=== PATIENT | male | born 1945 | race Caucasian/White ===

== ENCOUNTER 2023-11-21 12:52 | Emergency (ER) | payer OTHER, SELFPAY ==
[2023-11-21 13:01] VITALS: BP 175/90; PULSE 98; TEMP 36.6; O2SAT 98; BMI 35.3
--- NOTE | 2023-11-21 13:55 | CT_ITS ---
[address] [address] Patient Name: CHECO DIALLO MRN: [id number] date: 1945 Sex: M Assigned Patient Location: ER Current Patient Location: Accession/Order Number: [id number] Exam Date: 11/21/2023 14:27 Report Date: 11/21/2023 15:07 At the request of: LUZ SNIDER Procedure: CT abdomen pelvis wo con EXAMINATION: CT abdomen pelvis wo con HISTORY: Left lower quad pain COMPARISON: CT abdomen pelvis 10/25/2022 TECHNIQUE: Axial, Coronal, and Sagittal images were obtained without and/or with IV contrast as indicated by examination type. Dose reduction techniques were achieved by using automated exposure control and/or adjustment of mA and/or kV according to patient size and/or use of iterative reconstruction technique. FINDINGS: LUNG BASES: Stable 4 mm nodule within posterior lateral right costophrenic angle. LIVER: No enlargement, atrophy, suspicious density, or significant focal lesion. BILIARY: No dilatation or calcification. PANCREAS: No lesion, fluid collection, or abnormal duct dilatation. SPLEEN: No enlargement or focal lesion. ADRENALS: No mass or enlargement. KIDNEYS: Prior right nephrectomy. No mass, obstruction, or calcification. BOWEL/MESENTERY: Diverticulosis of distal colon with mild pericolonic inflammatory changes at the descending and sigmoid junction. No free air or free fluid. No bowel obstruction or appreciable mass. AORTA/VASCULAR: No aneurysm or dissection. RETROPERITONEUM: No mass or adenopathy. LYMPH NODES: No adenopathy. URINARY BLADDER: No visible focal wall thickening, lesion, or calculus. PELVIC ORGANS: Prior radioactive seeding of the prostate. ABDOMINAL WALL: Midline sutures from prior surgery. Bilateral fat filled inguinal hernias without strangulation. BONES: No bony lesion or fracture. L4-5 marked degenerative disc disease. OTHER: Negative. CT/CT abdomen pelvis wo con IMPRESSION: 1. Mild acute diverticulitis of the colon at the descending-sigmoid colon junction. No free air, free fluid, or obstruction. 2. Stable 4 mm nodule within right posterior lung base costophrenic angle; nonspecific. Electronically authenticated by: JOHANNA DUKES Date: 11/21/2023 15:07
--- NOTE | 2023-11-21 13:58 | ED_ITS ---
HPI HPI - General Adult General Chief complaint: Abdominal Pain Stated complaint: ABDOMINAL PAIN Time Seen by Provider: 11/21/23 13:55 Source: patient and family Mode of arrival: walk-in History of Present Illness HPI narrative: Patient is a 78-year-old male who presents to the emergency department for left lower quadrant abdominal pain that began last night. He denies fevers, chills. He has had no nausea or vomiting. He states he had a bowel movement yesterday but has not had any diarrhea or blood in his stool. He has had diverticulitis twice previously and states this feels the same. He denies urinary symptoms, flank or back pain. Related Data Previous Rx's ?Medication ?Instructions ?Recorded ciprofloxacin HCl 500 mg tablet 500 mg PO BID #20 tabs 11/21/23 (Cipro) dicyclomine 20 mg tablet 20 mg PO QID PRN abdominal pain 11/21/23 #12 tabs metronidazole 500 mg tablet 500 mg PO Q12H 10 days #20 tabs 11/21/23 ondansetron 4 mg disintegrating 4 mg PO Q6H PRN nausea and 11/21/23 tablet vomiting #12 tabs oxycodone-acetaminophen 5 mg-325 1 tab PO Q6H PRN pain 2 days #10 11/21/23 mg tablet (Percocet) tabs Allergies Allergy/AdvReac Type Severity Reaction Status Date / Time No Known Drug Allergies Allergy Verified 11/21/23 12:59 Opioid HPI Opioid Management Most Recent Opioid Data: No Data to Display Review of Systems ROS Constitutional Denies: fever or chills Ears, nose, mouth, and throat Denies: throat pain or nasal congestion Respiratory Denies: shortness of breath Gastrointestinal Reports: abdominal pain; Denies: nausea, vomiting or diarrhea Genitourinary Denies: painful urination Musculoskeletal Denies: back pain Integumentary/Breast Denies: rash Neurological Denies: headache Hematologic/Lymphatic Denies: easy bruising or easy bleeding Exam Narrative Exam Narrative: Gen.: Awake, alert, in no distress Head: Normocephalic, atraumatic ENT: Moist mucous membranes Respiratory: No respiratory distress, lungs clear bilaterally Cardio: Regular rate and rhythm Gastrointestinal: Abdomen is soft, nondistended and minimally tender to palpation in the left lower quadrant; no guarding or rebound Extremities: Moves extremities equally Psych: Normal mood and affect Neuro: No focal neuro deficit Skin: Warm, dry, intact Constitutional Vital Signs, click to edit/add: Last Vital Signs Temp 98 F 11/21/23 13:01 Pulse 98 H 11/21/23 13:01 Resp 15 11/21/23 13:01 BP 175/90 H 11/21/23 13:01 Pulse Ox 98 11/21/23 13:01 O2 Del Method Room Air 11/21/23 13:01 Course Vital Signs Vital signs: Vital Signs Temperature 98 F 11/21/23 13:01 Pulse Rate 98 H 11/21/23 13:01 Respiratory Rate 15 11/21/23 13:01 Blood Pressure 175/90 H 11/21/23 13:01 Pulse Oximetry 98 11/21/23 13:01 Oxygen Delivery Method Room Air 11/21/23 13:01 Temperature 98 F 11/21/23 13:01 Pulse Rate 98 H 11/21/23 13:01 Respiratory Rate 15 11/21/23 13:01 Blood Pressure 175/90 H 11/21/23 13:01 Pulse Oximetry 98 11/21/23 13:01 Oxygen Delivery Method Room Air 11/21/23 13:01 Medical Decision Making MDM Narrative Medical decision making narrative: Patient agreeable to IV start, lab draw, CT of the abdomen and pelvis. Patient with leukocytosis, CT shows mild acute diverticulitis. No free air or perforation. Patient declined any medication for pain in the ER. He has no complaints of nausea or vomiting. He is appropriate for discharge home. He is agreeable to IV Cipro prior to discharge. Cipro, Flagyl, Percocet, Bentyl, Zofran given for home. Follow-up with PCP. Abdomen is soft and benign in the ER. Return to the emergency department if symptoms change or worsen. Medical Records Medical records reviewed: Yes I reviewed the patient's medical records Lab Data Lab results reviewed: Yes I reviewed the patient's lab results Labs: Lab Results 11/21/23 11/21/23 Range/Units 14:00 14:05 WBC 22.1 H (4.0-11.0) 10^3/uL RBC 5.19 (4.70-6.10) 10^6/uL Hgb 15.3 (14.0-18.0) g/dL Hct 47.3 (42.0-54.0) % MCV 91.1 (80.0-94.0) fL MCH 29.5 (25.9-34.0) pg MCHC 32.3 (29.9-35.2) g/dL RDW 12.7 (11.0-15.0) % Plt Count 253 (150-450) 10^3/uL MPV 9.5 (9.5-13.5) fL Seg Neuts % (Manual) 79.0 Lymphocytes % (Manual) 9.0 L (20.5-60.0) % Monocytes % (Manual) 10.0 (1.7-12.0) % Eosinophils % (Manual) 2.0 (0.9-7.0) % Basophils % (Manual) 0.0 L (0.2-2.0) % Neutrophils # (Manual) 17.45 H (1.4-6.5) 10^3/uL Lymphocytes # (Manual) 1.98 (1.20-3.80) 10^3/uL Monocytes # (Manual) 2.21 H (0.30-0.80) 10^3/uL Eosinophils # (Manual) 0.44 (0.00-0.70) 10^3/uL Basophils # (Manual) 0.00 (0.00-0.10) 10^3/uL Sodium 134 L (136-145) mmol/L Potassium 4.6 (3.5-5.1) mmol/L Chloride 98 (98-107) mmol/L Carbon Dioxide 29.4 (21.0-32.0) mmol/L Anion Gap 11.2 BUN 15.0 (7.0-18.0) mg/dL Creatinine 0.96 (0.70-1.30) mg/dL Est GFR ( Amer) >60 (>=60) Est GFR (Non-Af Amer) >60 (>=60) BUN/Creatinine Ratio 15.6 Glucose 126 H (74-106) mg/dL Lactate 1.6 (0.4-2.0) mmol/L Calcium 10.2 H (8.5-10.1) mg/dL Total Bilirubin 0.9 (0.2-1.0) mg/dL AST 11 L (15-37) U/L ALT 17 (16-63) U/L Alkaline Phosphatase 83 (46-116) U/L Total Protein 8.1 (6.4-8.2) g/dL Albumin 3.9 (3.4-5.0) g/dL Globulin 4.2 g/dL Albumin/Globulin Ratio 0.9 Lipase 24.0 (16.0-77.0) U/L Imaging Data CT scan - abdomen: Attestation: I have reviewed the pertinent imaging results. Radiologist's impression: ITS Impressions Abdomen/Pelvis CT 11/21/23 13:55 IMPRESSION: 1. Mild acute diverticulitis of the colon at the descending-sigmoid colon junction. No free air, free fluid, or obstruction. 2. Stable 4 mm nodule within right posterior lung base costophrenic angle; nonspecific. Electronically authenticated by: JOHANNA DUKES Date: 11/21/2023 15:07 Discharge Plan Discharge Stand Alone Forms: Portal Instructions Chief Complaint: Abdominal Pain Clinical Impression: Diverticulitis, Abdominal pain Patient Disposition: Home, Self-Care Time of Disposition Decision: 15:16 Condition: Good Prescriptions / Home Meds: New ciprofloxacin HCl [Cipro] 500 mg tablet 500 mg PO BID Qty: 20 0RF dicyclomine 20 mg tablet 20 mg PO QID PRN (Reason: abdominal pain) Qty: 12 0RF metronidazole 500 mg tablet 500 mg PO Q12H 10 Days Qty: 20 0RF oxycodone-acetaminophen [Percocet] 5-325 mg tablet 1 tab PO Q6H PRN (Reason: pain) 2 Days Qty: 10 0RF Rx Instructions: DX: R10.9 ondansetron 4 mg tablet,disintegrating 4 mg PO Q6H PRN (Reason: nausea and vomiting) Qty: 12 0RF Print Language: Croatian Instructions: Diverticulitis (ED), Diverticulitis Diet (ED) Referrals: LEI SMALLS RE [Primary Care Provider] - 1 week
[2023-11-21 14:19] LABS: Hematocrit 47.3 % (42.0-54.0); Hemoglobin 15.3 g/dL (14.0-18.0); Mean Corpuscular HGB Conc 32.3 g/dL (29.9-35.2); Mean Corpuscular Hemoglobin 29.5 pg (25.9-34.0); Mean Corpuscular Volume 91.1 fL (80.0-94.0); Mean Platelet Volume 9.5 fL (9.5-13.5); Platelet Count 253 10^3/uL (150-450); Red Blood Count 5.19 10^6/uL (4.70-6.10); Red Cell Distribution Width 12.7 % (11.0-15.0); White Blood Count 22.1 10^3/uL (4.0-11.0)
[2023-11-21 14:40] LABS: Lactate/Lactic Acid 1.6 mmol/L (0.4-2.0)
[2023-11-21 14:41] LABS: Lymphocytes Absolute Manual 1.98 10^3/uL (1.20-3.80); Segmented Neut Absolute Manual 17.45 10^3/uL (1.4-6.5)
[2023-11-21 14:42] LABS: Eosinophils Absolute Manual 0.44 10^3/uL (0.00-0.70); Monocytes Absolute Manual 2.21 10^3/uL (0.30-0.80)
[2023-11-21 14:46] LABS: Alanine Aminotransferase 17 U/L (16-63); Albumin Globulin Ratio 0.9; Albumin Level 3.9 g/dL (3.4-5.0); Alkaline Phosphatase 83 U/L (46-116); Anion Gap 11.2; Aspartate Amino Transferase 11 U/L (15-37); BUN Creatinine Ratio 15.6; Bilirubin Total 0.9 mg/dL (0.2-1.0); Calcium 10.2 mg/dL (8.5-10.1); Carbon Dioxide 29.4 mmol/L (21.0-32.0); Chloride 98 mmol/L (98-107); Estimated GFR (African America >60 (>=60); Estimated GFR (Non-African Ame >60 (>=60); Globulin 4.2 g/dL; Glucose 126 mg/dL (74-106); Potassium 4.6 mmol/L (3.5-5.1); Sodium 134 mmol/L (136-145); Total Protein 8.1 g/dL (6.4-8.2)
[2023-11-21 15:18] LABS: Bilirubin Urine NEGATIVE (NEGATIVE); Blood Urine NEGATIVE (NEGATIVE); Clarity Urine CLEAR (CLEAR); Color Urine LT. YELLOW (YELLOW); Glucose Urine UA NEGATIVE (NEGATIVE); Ketones Urine NEGATIVE (NEGATIVE); Leukocyte Esterase Urine NEGATIVE (NEGATIVE); Nitrite Urine NEGATIVE (NEGATIVE); Protein Urine NEGATIVE (NEG/TRACE); Urobilinogen Urine 0.2 EU/dL (0.2-1.0)
[2023-11-21 15:19] LABS: Urine Microscopic Indicated NO
[2023-11-21] MEDS: CIPROFLOXACIN IN 5 % DEXTROSE 400 MG/200 ML PIGGYBACK 200 MG IV (15:39)
== END 2023-11-21 16:46 | disposition home or self-care (01) ==
PROVIDERS: Physician Assistant; Emergency Provider Emergency Medicine; PCP Family Medicine
DX: K57.32 Diverticulitis of large intestine without perforation or abscess without bleeding (principal); R91.1 Solitary pulmonary nodule; Z90.5 Acquired absence of kidney
CPT/HCPCS: 36415; 74176; 80053; 81003; 83605; 83690; 85007; 85027; 96365; 99285

== ENCOUNTER 2024-09-10 17:42 | Emergency (ER) | payer OTHER, MEDICARE, SELFPAY ==
[2024-09-10] VITALS (17 sets, daily range): BP systolic 133–198; BP diastolic 69–86; PULSE 84–115; TEMP 37.4; O2SAT 82–99; BMI 35.3
--- OUTSIDE RECORDS SUMMARY | 2024-09-10 17:52 | XMS_ITS | CCD ---
Author Organization [facility] Care Team Providers Care Plant Anatomy Teacher Name Role Phone DR JOHANNA DUKES Consulting Unavailable KELBY, DR KINGSLEY Chin Attending Unavailable KELBY, DR KINGSLEY Chin Admitting Unavailable DR LEI SMALLS Primary Care Unavaila ble KELBY, DR KINGSLEY Chin Consulting Unavailable DIAB ., LEXIE Consulting Unavailable ARAGON, ILIA Consulting Unavailable Problems Problem Classification Problem Date Documented Date Episodic/Chronic Abdominal pain (3 sources) Unspecified abdominal pain; Translations: [UNSPECIFIED ABDOMINAL PAIN] Onset: 10-25-2022 Episodic Diabetes mellitus with complications (1 source) Type 2 diabetes mellitus with hyperglycemia; Translations: [TYPE 2 DM W/HYPERGLYCEMIA] Onset: 11-01-2022 Chronic Diverticulosis and diverticulitis (1 source) Diverticulitis of large intestine without perforation or abscess without bleeding; Translations: [DVTRCLI LG INT NO PERF/ABSC W/O BL] Onset: 11-01-2022 Chronic Essential hypertension (1 source) Essential (primary) hypertension; Translations: [ESSENTIAL PRIMARY HYPERTENSION] Onset: 11-01-2022 Chronic Fluid and electrolyte disorders (1 source) Dehydration; Translations: [DEHYDRATION] Onset: 11-01-2022 Episodic Other aftercare (1 source) Other long term care social worker (current) drug therapy; Translations: [OTH SLIPCOVER CUTTER CURRENT DRUG THERAPY] Onset: 11-01-2022 Episodic Septicemia (except in labor) (1 source) Sepsis, unspecified organism; Translations: [SEPSIS UNSPECIFIED ORGANISM] Onset: 11-01-2022 Episodic Unclassified (1 source) CONTACT W/AND (SUSP) EXPOS COVID-19; Translations: [CONTACT W/AND (SUSP) EXPOS COVID-19] Onset: 11-01-2022 Results Test Name Value Interpretation Reference Range Facility CBC AUTO DIFFon 10-26-2022 BASO # 0.0 103/ul Normal 0.0-0.1 [facility] Comment on above: Performed By: #### P OCGLUC #### [facility] [address] [address] [address] Shanika Armas Basophils/100 WBC (Bld) 0.3 % Normal 0.2-2.0 [facility] Comment on above: Performed By: #### P OCGLUC #### [facility] [address] [address] [address] Shanika Armas EO # 0.1 103/ul Normal 0.0-0.7 [facility] Comment on above: Performed By: #### P OCGLUC #### [facility] [address] [address] [address] Shanika Armas Eosinophils/100 WBC (Bld) 2.4 % Normal 0.9-7.0 [facility] Comment on above: Performed By: #### P OCGLUC #### [facility] [address] [place] [address] Dr. Shanika Armas Erythrocyte distribution width (RBC) [Ratio] 12.8 % Normal 11.0-15.0 [facility] Comment on above: Performed By: #### P OCGLUC #### [facility] [address] [place] [address] Dr. Shanika Armas Hematocrit (Bld) [Volume fraction] 41.4 % Critically low 42.0-54.0 [facility] Comment on above: Performed By: #### P OCGLUC #### [facility] [address] [place] [address] Dr. Shanika Armas Hemoglobin (Bld) [Mass/Vol] 13.3 g/dL Critically low 14.0-18.0 [facility] Comment on above: Performed By: #### P OCGLUC #### [facility] [address] [place] [address] Dr. Shanika Armas IG # 0.02 10e3/ul Normal 0.00-0.03 [facility] Comment on above: Performed By: #### P OCGLUC #### [facility] [address] [address] [address] Shanika Armas IG % 0.3 % Normal 0.0-0.5 [facility] Comment on above: Performed By: #### P OCGLUC #### [facility] [address] [address] [address] Shanika Armas LYMPH # 1.0 103/ul Critically low 1.2-3.8 [facility] Comment on above: Performed By: #### P OCGLUC #### [facility] [address] [address] [address] Shanika Armas Lymphocytes/100 WBC (Bld) 16.2 % Critically low 20.5-60.0 [facility] Comment on above: Performed By: #### P OCGLUC #### [facility] [address] [address] [address] Shanika Armas MANUAL DIFF REQ NO Normal [facility] Comment on above: Performed By: #### P OCGLUC #### [facility] [address] [address] [address] Shanika Armas MCH (RBC) [Entitic mass] 29.2 pg Normal 25.9-34.0 [facility] Comment on above: Performed By: #### P OCGLUC #### [facility] [address] [address] [address] Shanika Armas MCHC (RBC) [Mass/Vol] 32.1 g/dL Normal 29.9-35.2 [facility] Comment on above: Performed By: #### P OCGLUC #### [facility] [address] [address] [address] Shanika Armas MCV (RBC) [Entitic vol] 91.0 fL Normal 80.0-94.0 [facility] Comment on above: Performed By: #### P OCGLUC #### [facility] [address] [address] [address] Shanika Armas MONO # 0.8 103/ul Normal 0.3-0.8 [facility] Comment on above: Performed By: #### P OCGLUC #### [facility] [address] [address] [address] Shanika Armas Monocytes/100 WBC (Bld) 14.1 % Critically high 1.7-12.0 [facility] Comment on above: Performed By: #### P OCGLUC #### [facility] [address] [address] [address] Shanika Armas NEUT # 4.0 103/ul Normal 1.4-6.5 [facility] Comment on above: Performed By: #### P OCGLUC #### [facility] [address] [address] [address] Shanika Armas Neutrophils/100 WBC (Bld) 66.7 % Normal 43.0-75.0 [facility] Comment on above: Performed By: #### P OCGLUC #### [facility] [address] [address] [address] Shanika Armas Platelet mean volume (Bld) [Entitic vol] 9.4 fL Critically low 9.5-13.5 [facility] Comment on above: Performed By: #### P OCGLUC #### [facility] [address] [address] [address] Shanika Armas PLT 168 103/ul Normal 150-450 [facility] Comment on above: Performed By: #### P OCGLUC #### [facility] [address] [address] [address] Shanika Armas RBC 4.55 106/ul Critically low 4.70-6.10 [facility] Comment on above: Performed By: #### P OCGLUC #### [facility] [address] [address] [address] Shanika Armas WBC 5.9 103/ul Normal 4.0-11.0 [facility] Comment on above: Performed By: #### P OCGLUC #### [facility] [address] [address] [address] Shanika Armas POINT OF CARE GLUCOSEon 10-15 Glucose [Mass/Vol] 125 mg/dL Critically high 74-106 [facility] Comment on above: Performed By: #### P OCGLUC #### [facility] [address] [address] [address] Shanika Armas PROF 14(COMP METB)on 04-12-2 023 Albumin [Mass/Vol] 2.9 g/dL Critically low 3.4-5.0 Th e [facility] Comment on above: Performed By: #### C MP #### [facility] [address] [place] [address] Dr. Shanika Armas Albumin/Globulin [Mass ratio] 0.9 {ratio} Normal [facility] Comment on above: Performed By: #### C MP #### [facility] [address] [address] [address] Shanika Armas ALP [Catalytic activity/Vol] 62 U/L Normal 46-116 [facility] Comment on above: Performed By: #### C MP #### [facility] [address] [place] [address] Dr. Shanika Armas ALT [Catalytic activity/Vol] 17 U/L Normal 16-63 [facility] Comment on above: Performed By: #### C MP #### [facility] [address] [place] [address] Dr. Shanika Armas Anion gap [Moles/Vol] 10.9 mmol/L Normal [facility] Comment on above: Performed By: #### C MP #### [facility] [address] [place] [address] Dr. Shanika Armas AST [Catalytic activity/Vol] 15 U/L Normal 15-37 [facility] Comment on above: Performed By: #### C MP #### [facility] [address] [place] [address] Dr. Shanika Armas Bilirubin [Mass/Vol] 0.5 mg/dL Normal 0.2-1.0 [facility] Comment on above: Performed By: #### C MP #### [facility] [address] [place] [address] Dr. Shanika Armas Calcium [Mass/Vol] 8.8 mg/dL Normal 8.5-10.1 [facility] Comment on above: Performed By: #### C MP #### [facility] [address] [place] [address] Dr. Shanika Armas Chloride [Moles/Vol] 106 mmol/L Normal 98-107 [facility] Comment on above: Performed By: #### C MP #### [facility] [address] [address] [address] Shanika Armas CO2 [Moles/Vol] 26.1 mmol/L Normal 21.0-32.0 [facility] Comment on above: Performed By: #### C MP #### [facility] [address] [address] [address] Shanika Armas Creatinine [Mass/Vol] 0.98 mg/dL Normal 0.70-1.30 [facility] Comment on above: Performed By: #### C MP #### [facility] [address] [address] [address] Shanika Armas EGFR-AF SAUDI ARABIAN >60 Normal >=60 [facility] Comment on above: Performed By: #### C MP #### [facility] [address] [place] [address] Dr. Shanika Armas EGFR-NON AF SAUDI ARABIAN >60 Normal >=60 [facility] Comment on above: Performed By: #### C MP #### [facility] [address] [place] [address] Dr. Shanika Armas Globulin (S) [Mass/Vol] 3.3 g/dL Normal [facility] Comment on above: Performed By: #### C MP #### [facility] [address] [place] [address] Dr. Shanika Armas Glucose [Mass/Vol] 137 mg/dL Critically high 74-106 [facility] Comment on above: Performed By: #### C MP #### [facility] [address] [place] [address] Dr. Shanika Armas Potassium [Moles/Vol] 4.0 mmol/L Normal 3.5-5.1 [facility] Comment on above: Performed By: #### C MP #### [facility] [address] [place] [address] Dr. Shanika Armas Protein [Mass/Vol] 6.2 g/dL Critically low 6.4-8.2 [facility] Comment on above: Performed By: #### C MP #### [facility] [address] [address] [address] Shanika Armas Sodium [Moles/Vol] 139 mmol/L Normal 136-145 [facility] Comment on above: Performed By: #### C MP #### [facility] [address] [address] [address] Shanika Armas Urea nitrogen [Mass/Vol] 10.0 mg/dL Normal 7.0-18.0 [facility] Comment on above: Performed By: #### C MP #### [facility] [address] [address] [address] Shanika Armas Urea nitrogen/Creatinine [Mass ratio] 10.2 mg/mg Normal [facility] Comment on above: Performed By: #### C MP #### [facility] [address] [address] [address] Shanika Armas XR ABD FLAT_UPon 10-26-2022 XR ABD FLAT_UP EXAMINATION: XR ABD FLAT_UP HISTORY: pain ; increasing abdominal pain COMPARISON: No relevant comparison available. FINDINGS: BOWEL GAS PATTERN: No abnormal bowel dilation or suspicious fluid levels. FREE AIR: None. CALCIFICATIONS: None significant. BONES: No fracture or visible bone lesion. OTHER: Numerous midline sutures, likely within the anterior abdominal and pelvic wall. Prior radioactive seeding of the prostate. IMPRESSION: 1. No bowel obstruction or acute abdominal findings. Electronically authenticated by: JOHANNA DUKES Date: 2022-10-26 11:09 Normal [facility] CARDIAC AIDEN ADMITon 023 CK [Catalytic activity/Vol] 37 U/L Critically low 39-308 [facility] Comment on above: Performed By: #### C MADM #### [facility] [address] [address] [address] Shanika Armas CK.MB [Mass/Vol] ng/mL Normal <=3.60 [facility] Comment on above: Performed By: #### C MADM #### [facility] [address] [address] [address] Shanika Armas HSTROP 6.2 pg/mL Normal 4.0-76.1 [facility] Comment on above: Result Comment: CUT- OFF POINTS HAVE BEEN ESTABLISHED BASED ON THE FOURTH UNIVERSAL DEFINITIONS OF MYOCARDIAL INFARCTION. THE UPPER REFERENCE LIMIT (URL) OF TROPONIN, DEFINED THE 99TH PERCENTILE OF cTnI DISTRIBUTION IN A REFERENCE POPULATION, HAS BEEN CONFIRMED THE DECISION THRESHOLD FOR [place] DIAGNOSIS. Performed By: #### C MADM #### [facility] [address] [address] [address] Shanika Armas ELISE 33 ng/mL Normal 16-96 [facility] Comment on above: Performed By: #### C MADM #### [facility] [address] [address] [address] Shanika Armas CBC AUTO DIFFon 10-25-2022 BASO # 0.0 103/ul Normal 0.0-0.1 [facility] Comment on above: Performed By: #### P OCGLUC #### [facility] [address] [place] [address] Dr. Shanika Armas Basophils/100 WBC (Bld) 0.2 % Normal 0.2-2.0 [facility] Comment on above: Performed By: #### P OCGLUC #### [facility] [address] [place] [address] Dr. Shanika Armas EO # 0.1 103/ul Normal 0.0-0.7 [facility] Comment on above: Performed By: #### P OCGLUC #### [facility] [address] [place] [address] Dr. Shanika Armas Eosinophils/100 WBC (Bld) 0.5 % Critically low 0.9-7.0 [facility] Comment on above: Performed By: #### P OCGLUC #### [facility] [address] [place] [address] Dr. Shanika Armas Erythrocyte distribution width (RBC) [Ratio] 12.7 % Normal 11.0-15.0 [facility] Comment on above: Performed By: #### P OCGLUC #### [facility] [address] [place] [address] Dr. Shanika Armas Hematocrit (Bld) [Volume fraction] 49.1 % Normal 42.0-54.0 [facility] Comment on above: Performed By: #### P OCGLUC #### [facility] [address] [address] [address] Shanika Armas Hemoglobin (Bld) [Mass/Vol] 16.1 g/dL Normal 14.0-18.0 [facility] Comment on above: Performed By: #### P OCGLUC #### [facility] [address] [address] [address] Shanika Armas IG # 0.09 10e3/ul Critically high 0.00-0.03 [facility] Comment on above: Performed By: #### P OCGLUC #### [facility] [address] [address] [address] Shanika Armas IG % 0.5 % Normal 0.0-0.5 [facility] Comment on above: Performed By: #### P OCGLUC #### [facility] [address] [place] [address] Dr. Shanika Armas LYMPH # 0.9 103/ul Critically low 1.2-3.8 [facility] Comment on above: Performed By: #### P OCGLUC #### [facility] [address] [address] [address] Shanika Armas Lymphocytes/100 WBC (Bld) 5.1 % Critically low 20.5-60.0 [facility] Comment on above: Performed By: #### P OCGLUC #### [facility] [address] [place] [address] Dr. Shanika Armas MANUAL DIFF REQ NO Normal [facility] Comment on above: Performed By: #### P OCGLUC #### [facility] [address] [address] [address] Shanika Armas MCH (RBC) [Entitic mass] 29.3 pg Normal 25.9-34.0 [facility] Comment on above: Performed By: #### P OCGLUC #### [facility] [address] [place] [address] Dr. Shanika Armas MCHC (RBC) [Mass/Vol] 32.8 g/dL Normal 29.9-35.2 [facility] Comment on above: Performed By: #### P OCGLUC #### [facility] [address] [address] [address] Shanika Armas MCV (RBC) [Entitic vol] 89.3 fL Normal 80.0-94.0 [facility] Comment on above: Performed By: #### P OCGLUC #### [facility] [address] [address] [address] Shanika Armas MONO # 1.2 103/ul Critically high 0.3-0.8 [facility] Comment on above: Performed By: #### P OCGLUC #### [facility] [address] [address] [address] Shanika Armas Monocytes/100 WBC (Bld) 6.2 % Normal 1.7-12.0 [facility] Comment on above: Performed By: #### P OCGLUC #### [facility] [address] [address] [address] Shanika Armas NEUT # 16.3 103/ul Critically high 1.4-6.5 [facility] Comment on above: Performed By: #### P OCGLUC #### [facility] [address] [address] [address] Shanika Armas Neutrophils/100 WBC (Bld) 87.5 % Critically high 43.0-75.0 [facility] Comment on above: Performed By: #### P OCGLUC #### [facility] [address] [address] [address] Shanika Armas Platelet mean volume (Bld) [Entitic vol] 9.5 fL Normal 9.5-13.5 [facility] Comment on above: Performed By: #### P OCGLUC #### [facility] [address] [address] [address] Shanika Armas PLT 236 103/ul Normal 150-450 [facility] Comment on above: Performed By: #### P OCGLUC #### [facility] [address] [address] [address] Shanika Armas RBC 5.50 106/ul Normal 4.70-6.10 [facility] Comment on above: Performed By: #### P OCGLUC #### [facility] [address] [place], [place] [address] Dr. Shanika Armas WBC 18.6 103/ul Critically high 4.0-11.0 [facility] Comment on above: Performed By: #### P OCGLUC #### [facility] [address] [place], [place] [address] ABD/PELV W CONon 10-26-19 CT ABD/PELV W CON EXAMINATION: CT ABD/PELV W CON HISTORY: GENERALIZED ABDOMINAL PAIN , constipation COMPARISON: No relevant comparison available. TECHNIQUE: Axial, Coronal, and Sagittal images were obtained without and/or with IV contrast as indicated by examination type. Dose reduction techniques were achieved by using automated exposure control and/or adjustment of mA and/or kV according to patient size and/or use of iterative reconstruction technique. FINDINGS: LUNG BASES: A few tiny nodules within right lung base; nonspecific. Trace amount of atelectasis or infiltrates within left lung base. LIVER: No enlargement, atrophy, suspicious density, or significant focal lesion. BILIARY: No dilatation or calcification. PANCREAS: No lesion, fluid collection, or abnormal duct dilatation. SPLEEN: No enlargement or focal lesion. ADRENALS: No mass or enlargement. KIDNEYS: Prior right nephrectomy; no abnormal findings within the renal fossa. Unremarkable left kidney and ureter. BOWEL/MESENTERY: Numerous diverticula involving the descending and sigmoid colon without acute inflammatory changes. Fluid-filled loops of small and large bowel without obstruction or abnormal dilation. No visible mass, obstruction, or bowel wall thickening. Normal appendix. AORTA/VASCULAR: No aneurysm or dissection. RETROPERITONEUM: No mass or adenopathy. LYMPH NODES: No adenopathy. URINARY BLADDER: No visible focal wall thickening, lesion, or calculus. PELVIC ORGANS: Prior radioactive seeding of the prostate. ABDOMINAL WALL: Numerous midline sutures within the anterior abdominal wall. No hernia. BONES: L4-5 marked degenerative disc disease. Mild grade 1 retrolisthesis L2-3, L4-5. L5 bilateral pars interarticularis defects, likely congenital. OTHER: Negative. IMPRESSION: 1.No acute abdominal/pelvic findings to account for patient's symptoms. 2. Trace amount of infiltrates versus atelectasis within left lung base. 3. Colonic diverticulosis. 4.Degenerative changes of lumbar spine. Electronically authenticated by: JOHANNA DUKES Date: 2022-10-25 10:37 Normal [facility] CULTURE BLOODon 10-25-2022 Microscopic examination of blood, culture Culture Observations: NO GROWTH AT 5 DAYS. Normal [facility] Comment on above: Performed By: #### P OCGLUC #### [facility] [address] [place] [address] Dr. Shanika Armas Microscopic examination of blood, culture Culture Observations: NO GROWTH AT 5 DAYS. Normal [facility] Comment on above: Performed By: #### P OCGLUC #### [facility] [address] [address] [address] Shanika Armas Covid-19 PCR ([facility])on 10-15 SARS-CoV-2 (COVID-19) RNA SADIE+probe Ql (Unsp spec) Not detected Normal NOT DETECTED [facility] Comment on above: Result Comment: When diagnostic testing is negative, the possibility of a false negative should be considered in the context of a patient's recent exposures and the presence of clinical signs and symptoms consistent with SARS-CoV-2. This test is not yet approved or cleared by the [place] FDA. When there are no FDA-approved or cleared tests available, and other criteria are met, FDA can make tests available under an emergency access mechanism called an Emergency Use Authorization (EUA). The EUA for this test is supported by the [place] of Health and Human Service's declaration that circumstances exist to justify the emergency use of in vitro diagnostics for the detection and/or diagnosis of the virus that causes COVID-19. This EUA will remain in effect for the duration of the COVID-19 declaration justifying emergency of IVDs, unless it is terminated or revoked by the FDA (after which the test may no longer be used). Performed By: #### C VDTBH #### [facility] [address] [place] [address] Dr. Shanika Armas ER URINE PROFILEon 3 Bilirubin Ql (U) Negative Normal NEGATIVE [facility] Comment on above: Performed By: #### E RUR #### [facility] [address] [place] [address] Dr. Shanika Armas Clarity (U) CLEAR Normal CLEAR [facility] Comment on above: Performed By: #### E RUR #### [facility] [address] [place] [address] Dr. Shanika Armas Color (U) YELLOW Normal YELLOW [facility] Comment on above: Performed By: #### E RUR #### [facility] [address] [place] [address] Dr. Shanika YOO A micrscopic examination will be performed if indicated. Normal [facility] Comment on above: Performed By: #### E RUR #### [facility] [address] [place] [address] Dr. Shanika Armas Glucose Ql (U) Negative Normal NEGATIVE [facility] Comment on above: Performed By: #### E RUR #### [facility] [address] [place] [address] Dr. Shanika Armas Hemoglobin Ql (U) Negative Normal NEGATIVE [facility] Comment on above: Performed By: #### E RUR #### [facility] [address] [place] [address] Dr. Shanika Armas Ketones Ql (U) Negative Normal NEGATIVE [facility] Comment on above: Performed By: #### E RUR #### [facility] [address] [place] [address] Dr. Shanika Armas LEUKOCYTES Negative Normal NEGATIVE [facility] Comment on above: Performed By: #### E RUR #### [facility] [address] [place] [address] Dr. Shnaika Armas Nitrite Ql (U) Negative Normal NEGATIVE [facility] Comment on above: Performed By: #### E RUR #### [facility] [address] [place] [address] Dr. Shanika Armas pH (U) 5.0 [pH] Normal 5-9 [facility] Comment on above: Performed By: #### E RUR #### [facility] [address] [place] [address] Dr. Shanika Armas SPEC GRAVITY 1.010 Normal 1.005-<=1.025 [facility] Comment on above: Performed By: #### E RUR #### [facility] [address] [address] [address] Shanika Armas UA PROTEIN Negative Normal NEGATIVE/ TRACE [facility] Comment on above: Performed By: #### E RUR #### [facility] [address] [address] [address] Shanika Armas UR MICRO IND NOT INDICATED Normal [facility] Comment on above: Performed By: #### E RUR #### [facility] [address] [address] [address] Shanika Armas Urobilinogen Qn (U) 0.2 {Magen'U}/dL Normal 0.2 - 1. 0 [facility] Comment on above: Performed By: #### E RUR #### [facility] [address] [place] [address] Dr. Shanika Armas LACTATE/LACTIC ACIDon 2022 Lactate [Moles/Vol] 2.3 mmol/L Critically high 0.4-2.0 [facility] Comment on above: Performed By: #### L ACT #### [facility] [address] [place] [address] Dr. Shanika Armas Lactate [Moles/Vol] 2.4 mmol/L Critically high 0.4-2.0 [facility] Comment on above: Performed By: #### L ACT #### [facility] [address] [place] [address] Dr. Shanika Armas POINT OF CARE GLUCOSEon 10-15 Glucose [Mass/Vol] 110 mg/dL Critically high 74-106 [facility] Comment on above: Performed By: #### P OCGLUC #### [facility] [address] [place] [address] Dr. Shanika Armas Glucose [Mass/Vol] 110 mg/dL Critically high 74-106 [facility] Comment on above: Performed By: #### P OCGLUC #### [facility] [address] [place] [address] Dr. Shanika Armas PROF 14(COMP METB)on 023 Albumin [Mass/Vol] 3.9 g/dL Normal 3.4-5.0 [facility] Comment on above: Performed By: #### C MP #### [facility] [address] [address] [address] Shanika Armas Albumin/Globulin [Mass ratio] 0.9 {ratio} Normal [facility] Comment on above: Performed By: #### C MP #### [facility] [address] [address] [address] Shanika Armas ALP [Catalytic activity/Vol] 81 U/L Normal 46-116 [facility] Comment on above: Performed By: #### C MP #### [facility] [address] [address] [address] Shanika Armas ALT [Catalytic activity/Vol] 23 U/L Normal 16-63 [facility] Comment on above: Performed By: #### C MP #### [facility] [address] [place] [address] Dr. Shanika Armas Anion gap [Moles/Vol] 12.8 mmol/L Normal [facility] Comment on above: Performed By: #### C MP #### [facility] [address] [place] [address] Dr. Shanika Armas AST [Catalytic activity/Vol] 17 U/L Normal 15-37 [facility] Comment on above: Performed By: #### C MP #### [facility] [address] [place] [address] Dr. Shanika Armas Bilirubin [Mass/Vol] 0.8 mg/dL Normal 0.2-1.0 [facility] Comment on above: Performed By: #### C MP #### [facility] [address] [place] [address] Dr. Shanika Armas Calcium [Mass/Vol] 10.2 mg/dL Critically high 8.5-10.1 T [facility] Comment on above: Performed By: #### C MP #### [facility] [address] [place] [address] Dr. Shanika Armas Chloride [Moles/Vol] 97 mmol/L Critically low 98-107 [facility] Comment on above: Performed By: #### C MP #### [facility] [address] [address] [address] Shanika Armas CO2 [Moles/Vol] 29.2 mmol/L Normal 21.0-32.0 [facility] Comment on above: Performed By: #### C MP #### [facility] [address] [address] [address] Shanika Armas Creatinine [Mass/Vol] 1.08 mg/dL Normal 0.70-1.30 [facility] Comment on above: Performed By: #### C MP #### [facility] [address] [address] [address] Shanika Armas EGFR-AF SAUDI ARABIAN >60 Normal >=60 [facility] Comment on above: Performed By: #### C MP #### [facility] [address] [place] [address] Dr. Shanika Armas EGFR-NON AF SAUDI ARABIAN >60 Normal >=60 [facility] Comment on above: Performed By: #### C MP #### [facility] [address] [place] [address] Dr. Shanika Armas Globulin (S) [Mass/Vol] 4.4 g/dL Normal [facility] Comment on above: Performed By: #### C MP #### [facility] [address] [place] [address] Dr. Shanika Armas Glucose [Mass/Vol] 192 mg/dL Critically high 74-106 [facility] Comment on above: Performed By: #### C MP #### [facility] [address] [address] [address] Shanika Armas Potassium [Moles/Vol] 4.0 mmol/L Normal 3.5-5.1 [facility] Comment on above: Performed By: #### C MP #### [facility] [address] [place] [address] Dr. Shanika Armas Protein [Mass/Vol] 8.3 g/dL Critically high 6.4-8.2 [facility] Comment on above: Performed By: #### C MP #### [facility] [address] [place] [address] Dr. Shanika Armas Sodium [Moles/Vol] 135 mmol/L Critically low 136-145 Th e [facility] Comment on above: Performed By: #### C MP #### [facility] [address] [address] [address] Shanika Armas Urea nitrogen [Mass/Vol] 19.0 mg/dL Critically high 7.0-18.0 [facility] Comment on above: Performed By: #### C MP #### [facility] [address] [address] [address] Shanika Armas Urea nitrogen/Creatinine [Mass ratio] 17.6 mg/mg Normal [facility] Comment on above: Performed By: #### C MP #### [facility] [address] [address] [address] Shanika Armas XR CHEST 1 Von 10-25-2022 XR CHEST 1 V TITLE: XR CHEST 1 V COMPARISON: None. CLINICAL HISTORY: SHORTNESS OF BREATH TECHNIQUE: One view. FINDINGS: There is a normal cardiac and mediastinal contour. The pulmonary vascular pattern is normal. The lungs are clear and the pleural margins are sharp. There are no significant skeletal abnormalities. IMPRESSION: NO ACUTE RADIOGRAPHIC FINDINGS Electronically authenticated by: ILIA ARAGON Date: 2022-10-25 09:29 Normal [facility] Glucose Poct Glucometerson 1 07-20-2020 Glucose [Mass/Vol] 146 mg/dL Normal [facility] Comment on above: Result Comment: [facility] Glucose Reference Range is dependent on time and content of last meal. Glucose of more than 200 mg/dL in a nonstressed, ambulatory subject supports the diagnosis of Diabetes Mellitus. PERFORMED BY: [facility] [address] [place] [address] PATHOLOGIST DREDGE RUNNER JERSON [place] M.D. Performed By: #### G MELVA #### Point of Care testing , COVID-19 Antigenon 1 COVID-19 Antigen Healthcare Worker?: N Trini Reference Trini Reference Negative SARS-CoV+SARS-CoV-2 (COVID-19) Ag [Presence] in Respiratory specimen by Rapid immunoassay Negative for SARS Antigen by SHAKIRA COVID19 Blank Space Trini Disclaimer Negative results, from patients with symptom Trini Disclaimer onset beyond five days, should be treated as Trini Disclaimer presumptive and confirmation with a molecular Trini Disclaimer assay, if necessary, for patient management, Trini Disclaimer may be performed. Negative results do not rule Trini Disclaimer out COVID-19 and should not be used as the sole Trini Disclaimer basis for treatment or patient management Trini Disclaimer decisions, including infection control decisions. Trini Disclaimer Negative results should be considered in the Trini Disclaimer context of a patient's recent exposures, history Trini Disclaimer and the presence of clinical signs and symptoms Trini Disclaimer consistent with COVID-19. COVID19 Blank Space Trini Disclaimer The Trini SARS Antigen SHAKIRA does not differentiate Trini Disclaimer between SARS-CoV and SARS-CoV-2. COVID19 Blank Space Trini Disclaimer This test was developed and its performance Trini Disclaimer characteristic determined by [employer] and Trini Disclaimer validated at [facility]. This Trini Disclaimer test has not been FDA cleared or approved. This Trini Disclaimer test has been authorized by FDA under an Emergency Use Trini Disclaimer Authorization (EUA). This test has been validated Trini Disclaimer in accordance with the FDA's Guidance Document (Policy Trini Disclaimer for Diagnostics Testing in Laboratories Certified to Trini Disclaimer Perform High Complexity Testing under CLIA prior to Trini Disclaimer Emergency Use Authorization for Coronavirus Trini Disclaimer iseas during the Public Health Emergency) Trini Disclaimer issued on October 17, 2019. This test is only authorized Trini Disclaimer for the duration of time the declaration that Trini Disclaimer circumstances exist justifying the authorization of Trini Disclaimer the emergency use of in vitro diagnostic tests for Trini Disclaimer detection of SARS-CoV-2 virus and/or diagnosis of Trini Disclaimer COVID-19 infection under section 564(b)(1) of the Trini Disclaimer Act, 21 U.S.C. 360bbb-3(b)(1), unless the Trini Disclaimer authorization is terminated or revoked sooner. PERFORMED BY: [place] [address] PATHOLOGIST DREDGE RUNNER JERSON [place] M.D. Normal [facility] Comment on above: Performed By: #### S ROHAN SPENCER-19 TRINI #### [address] Trini Ag Negativeon 05-18-20 21 Trini Ag Negative Negative Normal Negative [facility] Comment on above: Result Comment: This is a duplicate Trini SARS Antigen (SHAKIRA) result to be used for statistical tracking purpose only. PERFORMED BY: [place] [address] PATHOLOGIST DREDGE RUNNER JERSON [place] M.D. Performed By: #### S SHADE SPENCERID-19 TRINI #### [facility] [address] [place], [place] [id number] [facility] Encounters Encounter Date Encounter Type Care Provider Facility Start: 10-25-2022 End: 10-26-[address] JOHANNA DUKES Facility: Payers Date Payer Category Payer Unknown [id number] 1945 Unknown [id number] 09.01.84 [id number] Summary Purpose Family History No Family History Records FoundNo Family History Records Found Advance Directives No Advanced Directives Records FoundNo Advanced Directives Records Found Additional Source Comments (unrecognized sect ion and content) No Status Records FoundNo Status Records Found INFORMATION SOURCE (unrecogn ized section and content) DATE CREATED AUTHOR 05/21/2021 [facility] DATE CREATED AUTHOR AUTHOR'S RENUKA GARCIA 11/17/2022 [facility] FOR RECORDS PERTAINING TO PATIENTS WHO ARE OR HAVE BEEN ENROLLED IN A CHEMICAL DEPENDENCY/SUBSTANCEABUSE PROGRAM, SOME INFORMATION MAY BE OMITTED. This clinical summary was aggregated from multiple sources. Caution should be exercised in using it in the provision of clinical care. This summary normalizes information from multiple sources, and as a consequence, information in this document may materially change the coding, format and clinical context of patient data. In addition, data may be omitted in some cases. CLINICAL DECISIONS SHOULD BE BASED ON THE PRIMARY CLINICAL RECORDS. [employer] provides no warranty or guarantee of the accuracy or completeness of information in this document.
--- NOTE | 2024-09-10 18:16 | ED_ITS ---
HPI - SOB/Dyspnea General Chief Complaint: Shortness of Breath/Dyspnea Stated Complaint: shortness of breath Time Seen by Provider: 09/10/24 18:09 Source: patient Mode of arrival: walk-in Limitations: no limitations History of Present Illness HPI Narrative: Patient is a 79-year-old male who presents to the emergency department for evaluation of upper respiratory symptoms and shortness of breath. Patient states he has had a cough for the last 3 days, today he feels more short of breath. He has had some rib pain with coughing. No sputum production. His is sick with a sore throat. He has not had any objective fevers. No peripheral edema. No vomiting or diarrhea. No medications taken prior to arrival. He has no history of COPD or emphysema. No medications for diabetes or anticoagulation at home. Related Data Previous Rx's ?Medication ?Instructions ?Recorded ciprofloxacin HCl 500 mg tablet 500 mg PO BID #20 tabs 11/21/23 (Cipro) dicyclomine 20 mg tablet 20 mg PO QID PRN abdominal pain 11/21/23 #12 tabs metronidazole 500 mg tablet 500 mg PO Q12H 10 days #20 tabs 11/21/23 ondansetron 4 mg disintegrating 4 mg PO Q6H PRN nausea and 11/21/23 tablet vomiting #12 tabs oxycodone-acetaminophen 5 mg-325 1 tab PO Q6H PRN pain 2 days #10 11/21/23 mg tablet (Percocet) tabs albuterol sulfate 90 mcg/actuation 2 inh inhalation Q4H PRN shortness 09/10/24 aerosol inhaler of breath or wheezing #8.5 grams cefdinir 300 mg capsule 300 mg PO BID 10 days #20 caps 09/10/24 methylprednisolone 4 mg tablets in See Rx Instructions .Route 09/10/24 a dose pack (Medrol (Jeffrey)) .COMPLEX #21 ea Allergies Allergy/AdvReac Type Severity Reaction Status Date / Time No Known Drug Allergies Allergy Verified 11/21/23 12:59 Review of Systems ROS Constitutional Denies: fever or chills Ears, nose, mouth, and throat Reports: nasal discharge and nasal congestion; Denies: throat pain Cardiovascular Denies: chest pain Respiratory Reports: shortness of breath and cough Gastrointestinal Denies: nausea or vomiting Musculoskeletal Denies: back pain Integumentary/Breast Denies: rash Neurological Denies: numbness in extremities or weakness in extremities Hematologic/Lymphatic Denies: easy bruising or easy bleeding PFSH PFS Social History Little interest or pleasure in doing things: not at all Feeling down, depressed, or hopeless: not at all Exam Narrative Exam Narrative: Gen.: Awake, alert, in no distress Head: Normocephalic, atraumatic ENT: Moist mucous membranes, bilateral TMs clear Respiratory: No respiratory distress, lungs clear bilaterally Cardio: Regular rate and rhythm Gastrointestinal: Abdomen is soft, nondistended and nontender to palpation Extremities: Moves extremities equally, no pedal edema Psych: Normal mood and affect Neuro: No focal neuro deficit Skin: Warm, dry, intact Constitutional Vital Signs, click to edit/add: Last Vital Signs Temp 99.4 F 09/10/24 17:59 Pulse 84 09/10/24 20:05 Resp 20 09/10/24 20:05 BP 134/69 09/10/24 19:53 Pulse Ox 95 09/10/24 20:05 O2 Del Method Room Air 09/10/24 20:05 Course Vital Signs Vital signs: Vital Signs Blood Pressure 133/76 09/10/24 17:35 Temperature 99.4 F 09/10/24 17:59 Pulse Rate 84 09/10/24 20:05 Respiratory Rate 20 09/10/24 20:05 Blood Pressure 134/69 09/10/24 19:53 Pulse Oximetry 95 09/10/24 20:05 Oxygen Delivery Method Room Air 09/10/24 20:05 MDM - SOB/Dyspnea MDM Narrative Medical decision making narrative: Patient was given a breathing treatment, labs are unremarkable, flu and COVID testing is negative and chest x-ray was read by the radiologist with no evidence of acute cardio pulmonary changes. Patient reports feeling better after the breathing treatment, he walked to the bathroom and maintain pulse oximetry 95%. He is anxious for discharge home and feels comfortable with outpatient management. He is started on antibiotics, steroid taper and inhaler for home. He will return to the emergency department if symptoms change or worsen SUPERVISED APC VISIT, PHYSICIAN ATTESTATION: Based on the medical record the care appears appropriate. ? Medical Records Attestation: I reviewed the patient's medical records. Lab Data Attestation: I reviewed the patient's lab results. Labs: Lab Results 09/10/24 09/10/24 Range/Units 18:08 18:20 WBC 12.9 H (4.0-11.0) 10^3/uL RBC 5.02 (4.70-6.10) 10^6/uL Hgb 15.3 (14.0-18.0) g/dL Hct 45.5 (42.0-54.0) % MCV 90.6 (80.0-94.0) fL MCH 30.5 (25.9-34.0) pg MCHC 33.6 (29.9-35.2) g/dL RDW 12.6 (11.0-15.0) % Plt Count 203 (150-450) 10^3/uL MPV 9.6 (9.5-13.5) fL Neut % (Auto) 87.5 H (43.0-75.0) % Lymph % (Auto) 3.3 L (20.5-60.0) % Harnett % (Auto) 7.7 (1.7-12.0) % Eos % (Auto) 0.7 L (0.9-7.0) % Baso % (Auto) 0.4 (0.2-2.0) % Neut # (Auto) 11.3 H (1.4-6.5) 10^3/uL Lymph # (Auto) 0.4 L (1.2-3.8) 10^3/uL Harnett # (Auto) 1.0 H (0.3-0.8) 10^3/uL Eos # (Auto) 0.1 (0.0-0.7) 10^3/uL Baso # (Auto) 0.1 (0.0-0.1) 10^3/uL Abs Immat Gran (auto) 0.05 H (0.00-0.03) 10^3/uL Imm/Tot Granulo (auto) 0.4 (0.0-0.5) % PT 11.1 (9.0-11.6) sec INR 1.05 Sodium 137 (136-145) mmol/L Potassium 4.0 (3.5-5.1) mmol/L Chloride 101 (98-107) mmol/L Carbon Dioxide 28.6 (21.0-32.0) mmol/L Anion Gap 11.4 BUN 14.0 (7.0-18.0) mg/dL Creatinine 1.15 (0.70-1.30) mg/dL Est GFR ( Amer) >60 (>=60 mL/min/1.73m^2) Est GFR (Non-Af Amer) >60 (>=60 mL/min/1.73m^2) BUN/Creatinine Ratio 12.2 Glucose 165 H (74-106) mg/dL Calcium 9.8 (8.5-10.1) mg/dL Total Bilirubin 0.7 (0.2-1.0) mg/dL AST 17 (15-37) U/L ALT 19 (16-63) U/L Alkaline Phosphatase 70 (46-116) U/L Troponin I High Sens 10.2 (4.0-76.1) pg/mL NT-Pro-B Natriuret Pep 299.0 (<=1800.0) pg/mL Total Protein 7.2 (6.4-8.2) g/dL Albumin 3.8 (3.4-5.0) g/dL Globulin 3.4 g/dL Albumin/Globulin Ratio 1.1 Influenza Type A Ag Negative Influenza Type B Ag Negative SARS-CoV-2 Ag (CV2AG) Negative (NEGATIVE) Imaging Data Chest x-ray: Attestation: I have reviewed the pertinent imaging results. Radiologist's impression: ITS Impressions Chest X-Ray 09/10/24 18:20 IMPRESSION: No acute cardiopulmonary pathology. Similar mild cardiomegaly. Impression dictated by: Jose R Keen M.D.09/10/2024 7:23 PM Dictation Location: [place] [address] Electronically authenticated by: [id number] Y Date: 09/10/2024 19:23 ECG Data Attestation: I personally reviewed and interpreted this ECG as follows: (Sinus tachycardia at a rate of 106, no acute ST elevation or ectopy. EKG reviewed by attending physician) Discharge Plan Discharge Chief Complaint: Shortness of Breath/Dyspnea Clinical Impression: Acute upper respiratory infection Patient Disposition: Home, Self-Care Time of Disposition Decision: 19:58 Condition: Good Prescriptions / Home Meds: New methylprednisolone [Medrol (Jeffrey)] 4 mg tablets,dose pack See Rx Instructions .ROUTE .COMPLEX Qty: 21 0RF Rx Instructions: Taper as directed albuterol sulfate 90 mcg/actuation HFA aerosol inhaler 2 inh inhalation Q4H PRN (Reason: shortness of breath or wheezing) Qty: 8.5 0RF cefdinir 300 mg capsule 300 mg PO BID 10 Days Qty: 20 0RF No Action ciprofloxacin HCl [Cipro] 500 mg tablet 500 mg PO BID Qty: 20 0RF dicyclomine 20 mg tablet 20 mg PO QID PRN (Reason: abdominal pain) Qty: 12 0RF metronidazole 500 mg tablet 500 mg PO Q12H 10 Days Qty: 20 0RF oxycodone-acetaminophen [Percocet] 5-325 mg tablet 1 tab PO Q6H PRN (Reason: pain) 2 Days Qty: 10 0RF Rx Instructions: DX: R10.9 ondansetron 4 mg tablet,disintegrating 4 mg PO Q6H PRN (Reason: nausea and vomiting) Qty: 12 0RF Print Language: Latvian Instructions: Upper Respiratory Infection (ED) Referrals: Physician,Non-Staff, MD [Primary Care Provider] - 1 week Discharge Date/Time: 09/10/24 20:07
--- NOTE | 2024-09-10 18:19 | ECG_ITS ---
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
--- NOTE | 2024-09-10 18:20 | XR_ITS ---
The [address] [address] Patient Name: CHECO DIALLO MRN: [id number] date: 1945 Sex: M Assigned Patient Location: ER Current Patient Location: ER Accession/Order Number: [id number] Exam Date: 09/10/2024 19:22 Report Date: 09/10/2024 19:23 At the request of: LUZ FIERRO Procedure: XR chest 1V XR chest 1V 09/10/2024 6:48 PM SIGNS AND SYMPTOMS: ^Shortness of breath PROTOCOL: Frontal radiograph of the chest COMPARISON: 10/25/2022 FINDINGS: The trachea is midline. There is similar cardiomegaly. The lung parenchyma is clear. The bony thorax is intact. XR/XR chest 1V IMPRESSION: No acute cardiopulmonary pathology. Similar mild cardiomegaly. Impression dictated by: Jose R Keen M.D.09/10/2024 7:23 PM Dictation Location: [place] [address] Electronically authenticated by: [id number] Y Date: 09/10/2024 19:23
[2024-09-10] MEDS: ALBUTEROL SULFATE 2.5 MG/3 ML VIAL NEB IH (18:34)
[2024-09-10 18:47] LABS: Basophils Absolute Auto 0.1 10^3/uL (0.0-0.1); Basophils Percent Auto 0.4 % (0.2-2.0); Eosinophils Absolute Auto 0.1 10^3/uL (0.0-0.7); Eosinophils Percent Auto 0.7 % (0.9-7.0); Hematocrit 45.5 % (42.0-54.0); Hemoglobin 15.3 g/dL (14.0-18.0); Immature Granulocytes Abs Auto 0.05 10^3/uL (0.00-0.03); Immature Granulocytes Pct Auto 0.4 % (0.0-0.5); Lymphocytes Absolute Auto 0.4 10^3/uL (1.2-3.8); Lymphocytes Percent Auto 3.3 % (20.5-60.0); Mean Corpuscular HGB Conc 33.6 g/dL (29.9-35.2); Mean Corpuscular Hemoglobin 30.5 pg (25.9-34.0); Mean Corpuscular Volume 90.6 fL (80.0-94.0); Mean Platelet Volume 9.6 fL (9.5-13.5); Monocytes Percent Auto 7.7 % (1.7-12.0); Neutrophils Absolute Auto 11.3 10^3/uL (1.4-6.5); Neutrophils Percent Auto 87.5 % (43.0-75.0); Platelet Count 203 10^3/uL (150-450); Red Blood Count 5.02 10^6/uL (4.70-6.10); Red Cell Distribution Width 12.6 % (11.0-15.0); White Blood Count 12.9 10^3/uL (4.0-11.0)
[2024-09-10 18:57] LABS: Influenza Virus A Antigen Negative
[2024-09-10 18:58] LABS: Influenza Virus B Antigen Negative; Internal Control Within Normal Limits; SARS-CoV-2 Ag NEGATIVE (NEGATIVE)
[2024-09-10 19:02] LABS: INR 1.05; Prothrombin Time 11.1 sec (9.0-11.6)
[2024-09-10 19:14] LABS: Troponin I High Sensitivity 10.2 pg/mL (4.0-76.1)
[2024-09-10 19:15] LABS: Alanine Aminotransferase 19 U/L (16-63); Albumin Globulin Ratio 1.1; Albumin Level 3.8 g/dL (3.4-5.0); Alkaline Phosphatase 70 U/L (46-116); Anion Gap 11.4; Aspartate Amino Transferase 17 U/L (15-37); BUN Creatinine Ratio 12.2; Bilirubin Total 0.7 mg/dL (0.2-1.0); Calcium 9.8 mg/dL (8.5-10.1); Carbon Dioxide 28.6 mmol/L (21.0-32.0); Chloride 101 mmol/L (98-107); Estimated GFR (African America >60 (>=60 mL/min/1.73m^2); Estimated GFR (Non-African Ame >60 (>=60 mL/min/1.73m^2); Globulin 3.4 g/dL; Glucose 165 mg/dL (74-106); Sodium 137 mmol/L (136-145); Total Protein 7.2 g/dL (6.4-8.2)
--- NOTE | 2024-09-10 19:53 | PC.NURSE ---
SPO2 measured after pt walked the hallway.
== END 2024-09-10 20:07 | disposition home or self-care (01) ==
PROVIDERS: Physician Assistant; Emergency Provider Emergency Medicine
DX: J06.9 Acute upper respiratory infection, unspecified (principal); R06.02 Shortness of breath; R05.9 Cough, unspecified; R07.81 Pleurodynia; I51.7 Cardiomegaly
CPT/HCPCS: 36415; 71045; 80053; 83880; 84484; 85025; 85610; 87804; 87811; 93005; 94640; 99285

== ENCOUNTER 2025-02-24 09:23 | Emergency (ER) | payer OTHER, SELFPAY ==
--- OUTSIDE RECORDS SUMMARY | 2024-08-13 06:00 | XMS_ITS | Encounter Summary ---
Author Name [facility] (MD) Organization [facility] (MD) Address [address] [place] [id number] Care Team Providers Care Change House Attendant Name Role Phone ADELAIDA GARCIA Primary Care Provider Unavailabl e Insurance Providers: All historical and current Section Date Range: From patient's date of to the date document was created. This section includes the names of all active insurance providers for the patient. Insurance Provider Type of Coverage Plan Name Start of Policy Coverage End of Policy Coverage Group Number Member ID Insurance Provider's Telephone Number Policy Snyder's Name Patient's Relationship to Policy Snyder AARP MEDIGAP PLAN F PLAN F Aug 17, 2011 MEDIGAP [id number] [id number] WIEDLE,DO UGLAS PATIENT AETNA MCR (WNR) MEDICARE ADVANTAGE [facility] ([facility] Jul 17, 2021 [id number] [phone] WIEDLE,DO UGLAS PATIENT AETNA MCR (WNR) MEDICARE ADVANTAGE [facility] ([facility]) Jul 17, 2021 [id number] [place] [id number] WIEDLE,DO UGLAS PATIENT MEDICARE (WNR) MEDICARE (M) PART A Aug 17, 2011 PART A [id number] WIEDLE,DO UGLAS PATIENT MEDICARE (WNR) MEDICARE (M) PART B Aug 17, 2011 PART B [id number] WIEDLE,DO UGLAS PATIENT Selected Encounter This section includes the information on record at MD for the Encounter. Date/Time Encounter Type Encounter Description Reason Provider Source Aug 13, 2024 10:00 AM OFFICE O/P EST MOD 30 MIN PRIMARY CARE/MEDICINE ICD-10-CM I10 Essential (primary) hypertension KAREYSANCHOADELAIDA DO E Encounter Template Text not used by MD Assessments - Encounter Diagnoses This section includes the primary and secondary diagnoses documented for the Encounter. Date/Time Primary/Secondary Diagnosis Diagnosis Name Provider Source Aug 13, 2024 11:34 AM PRIMARY Essential (primary) hypertension SIDIQPABLOA Y DO [facility] Aug 13, 2024 11:34 AM SECONDARY Encounter for immunization TRACY PANDEY [facility] Aug 13, 2024 11:34 AM SECONDARY Hyperlipidemia, unspecified SIDIQ,ADELAIDA Y DO [facility] Aug 13, 2024 11:34 AM SECONDARY [facility] in right [facility] Plan of Treatment: Future Appointments (+ 6 months) and Future Tests (+/- 45 days) The Plan of Treatment section includes future care activities for the patient from all MD treatmentfacilities. This section includes future appointments and future orders which are active, pending or scheduled. Future Appointments This section includes appointments that were scheduled to occur 6 months from the date of the Encounter, up to a maximum of 20 appointments. The data comes from all MD treatment facilities. Appointment Date/Time Appointment Type Appointme nt Facility Name Aug 27, 2024 10:30 AM AMBULATORY - NONE [facility] Feb 06, 2025 11:30 AM AMBULATORY - MEDICINE [facility] Lab Results: +/- 30 days of the encounter This section includes the Chemistry and Hematology Lab Results on record with MD for the patient. Radiology Reports and Pathology Reports are provided separately, in subsequent sections. Lab Results This section contains the Chemistry/Hematology Results that were resulted 30 days before or 30 daysafter the date of the Encounter. Date/Time Source Result Type Result - Unit Interpretation Reference Range Specimen Type Comment Aug 13, 2024 09:[address] [facility] MICROALBUMIN URINE PANEL,RANDOM URINE,RA NDOM Specimen Type: URINE,RANDOM No comment entered. Ordering Provider: ADELAIDA GARCIA DO Report Released Date/Time: Aug 12, 2024 05:18 PM Reporting Lab: [address] [address] Performing Lab: [address] [address] CREATININE 140 mg/dL MICROALBUMIN,RANDOM 1.5 mg/dL MICRO/CREAT RATIO 10.7 mg/g Aug 13, 2024 09:[address] [facility] LIPID PROFILE BLOO D Specimen Type: BLOOD No comment entered. Ordering Provider: ADELAIDA GARCIA DO Report Released Date/Time: Aug 12, 2024 05:18 PM Reporting Lab: [facility] [address] [facility] [address] Performing Lab: [facility] [address] [facility] [address] CHOLESTEROL 195 mg/dL <200 TRIGLYCERIDE 120 mg/dL HDL CHOLESTEROL 38 mg/dL LDL CHOLESTEROL,calc 133 mg/dL H <130 Aug 13, 2024 09:[address] [facility] TSH BLOOD Specimen Type: BLOOD No comment entered. Ordering Provider: ADELAIDA GARCIA DO Report Released Date/Time: Aug 12, 2024 05:18 PM Reporting Lab: [address] [address] Performing Lab: [address] [address] TSH 1.748 u[IU]/mL 0.45-5.33 Aug 13, 2024 09:[address] [facility] HGB A1C (with eAG) BLOOD Specimen Ty pe: BLOOD No comment entered. Ordering Provider: ADELAIDA GARCIA DO Report Released Date/Time: Aug 12, 2024 05:18 PM Reporting Lab: [facility] [address] [facility] [address] Performing Lab: [facility] [address] [facility] [address] HGB A1C 6.3 H 4.0-6.0 ESTIMATE AVG GLUCOSE 134 mg/dL Aug 13, 2024 09:[address] [facility] PSA BLOOD Specimen Type: BLOOD No comment entered. Ordering Provider: ADELAIDA GARCIA DO Report Released Date/Time: Aug 12, 2024 05:20 PM Reporting Lab: [address] [address] Performing Lab: [address] [address] PSA <0.008 ng/mL <4.000 Aug 13, 2024 09:[address] [facility] URIC ACID BLOOD Specimen Type: BLOOD No comment entered. Ordering Provider: ADELAIDA GARCIA DO Report Released Date/Time: Aug 12, 2024 05:18 PM Reporting Lab: [facility] [address] [facility] [address] Performing Lab: [facility] [address] [facility] [address] URIC ACID 6.4 mg/dL 4.4-7.6 Aug 13, 2024 09:[address] [facility] COMPREHENSIVE METABOLIC PANEL BLOOD Specimen Type: BLOOD No comment entered. Ordering Provider: ADELAIDA GARCIA DO Report Released Date/Time: Aug 12, 2024 05:18 PM Reporting Lab: [place] [address] [address] [facility] [address] Performing Lab: [facility] [address] [facility] [address] CREATININE 1.0 mg/dL 0.6-1.3 UREA NITROGEN 18 mg/dL 7-25 GLUCOSE 135 mg/dL H 74-109 SODIUM 141 mmol/L 136-145 POTASSIUM 5.0 mmol/L 3.5-5.1 CHLORIDE 103 mmol/L 98-107 CO2 32 mmol/L H 21-31 CALCIUM 10.5 mg/dL H 8.6-10.3 PROTEIN,TOTAL 7.4 g/dL 6.4-8.9 ALBUMIN 4.2 g/dL 3.5-5.7 TOT. BILIRUBIN 0.7 mg/dL 0.3-1.0 ALKALINE PHOSPHATASE 53 U/L 34-104 SGOT(AST) 14 U/L 13-39 SGPT(ALT) 13 U/L 7-52 EGFR 78 mL/min/{1.73_m2} Aug 13, 2024 09:[address] [facility] CBC WITH DIFFERENTIAL BLOOD Specimen Type: BLOOD No comment entered. Ordering Provider: ADELAIDA GARCIA DO Report Released Date/Time: Aug 12, 2024 05:18 PM Reporting Lab: [facility] [address] [facility] [address] Performing Lab: [facility] [address] [facility] [address] WBC 12.97 10*3/uL H 4.00-11.00 RBC 5.22 10*6/uL 4.10-5.80 HGB 15.7 g/dL 12.1-17.2 HCT 48.0 38.0-51.0 MCV 92.0 fL 80.0-100.0 MCH 30.1 pg 26.0-32.0 MCHC 32.7 g/dL 32.0-37.5 PLATELET 235 10*3/uL 130-400 MPV 9.2 fL 8.9-12.7 LYMPH, ABSOLUTE AUTOMATED 2.84 10*3/uL 1 .00-3.00 MONOS % AUTOMATED 9.1 MONOS, ABSOLUTE AUTOMATED 1.18 10*3/uL H 0 .30-0.90 LYMPH % AUTOMATED 21.9 BASO, ABSOLUTE AUTOMATED 0.08 10*3/uL 0. 00-0.20 EOSINO, ABSOLUTE AUTOMATED 0.61 10*3/uL H 0.00-0.50 NEUTRO % AUTOMATED 63.3 EOSIN % AUTOMATED 4.7 BASO % AUTOMATED 0.6 NEUTROPHIL, ABSOLUTE AUTOMATED 8.21 10*3/uL H 2.00-7.00 RDW-CV 12.7 11.5-14.5 IMMATURE GRANULOCYTE, PERCENT AUTOMATED 0.4 0.0-0.5 NRBC% 0.0 NRBC# <0.01 10*3/uL 0.000-0.012 Vital Signs: All taken on the encounter date This section contains inpatient and outpatient Vital Signs collected on the date of the Encounter. Date/Time Temperature Pulse Blood Pressure Respiratory Rate SP02 Pain Height Weight Body Mass Index Source Aug 13, 2024 10:09 AM 148/[address] [facility] Aug 13, 2024 10:08 AM 98 69 147/77 [address] [facility] Aug 13, 2024 10:06 AM [address] [facility] Immunizations: All administered on the encounter date This section contains immunizations associated to the Encounter. Immunization Series Date Issued Administered By Site Reaction Lot Number CVX Code Drug Consultant Technology Comment(s) Source COVID-19 (PFIZER), MRNA, LNP-S, PF, EDOUARD-SUCROSE, 30 MCG/0.3 ML (AGES 12+ YEARS) Aug 13, 2024 LIZABETH PANDEY LEFT DELTO ID [id number] PFI[employer], INC ADMINISTERE D AT [facility] INFLUENZA, HIGH-DOSE, TRIVALENT, PF Aug 13, 2024 LIZABETH PANDEY RIGHT DELTO ID [id number] [employer] ADMINISTERE D AT [facility] Social History: Smoking Status (Most current) and Tobacco Use (All prior to encounter date) This section includes the most current, and the historical, smoking and tobacco- related health factors from the MD facility where the Encounter took place. Current Smoking Status This section includes the most current smoking, or tobacco-related health factor, from the MD facility where the Encounter took place. Date/Time Current Smoking Status Comment Facil ity Aug 13, 2024 10:00 AM VA-TOBACCO USE FORMER CIGARETTES [facility] Tobacco Use History This section includes a history of the smoking, or tobacco-related health factors, that were collected on or before the date of the Encounter. The data comes from the MD facility where the Encounter took place. Date/Time Smoking Status/Tobacco Use Comment F acility Aug 13, 2024 10:00 AM VA-TOBACCO USE FORMER CIGARETTES [facility] Aug 18, 2023 10:00 AM VA-TOBACCO FORMER USER [facility] Aug 18, 2023 10:00 AM VA-TOBACCO QUIT 15 YRS OR MORE [facility] Apr 22, 2022 10:00 AM VA-TOBACCO FORMER USER [facility] Apr 22, 2022 10:00 AM VA-TOBACCO QUIT 15 YRS OR MORE [facility] Mar 26, 2021 10:00 AM VA-TOBACCO FORMER USER [facility] Mar 26, 2021 10:00 AM VA-TOBACCO QUIT 15 YRS OR MORE [facility] Oct 26, 2018 10:41 AM VA-TOBACCO FORMER USER [facility] Oct 26, 2018 10:41 AM VA-TOBACCO QUIT 15 YRS OR MORE [facility] Oct 20, 2017 11:30 AM VA-TOBACCO FORMER USER [facility] Oct 20, 2017 11:30 AM VA-TOBACCO QUIT 15 YRS OR MORE [facility] Oct 20, 2017 10:23 AM QUIT TOBACCO >[address] [facility] Apr 21, 2017 11:26 AM QUIT TOBACCO >[address] [facility] Oct 20, 2016 09:50 AM QUIT TOBACCO >[address] [facility] Jul 07, 2015 08:22 AM LIFETIME NON-USER OF TOBACCO [facility] Jul 07, 2015 08:22 AM QUIT TOBACCO >[address] [facility] November 18, 2014 09:14 AM QUIT TOBACCO >[address] [facility] Nov 04, 2013 01:22 PM QUIT TOBACCO >[address] [facility] Jun 24, 2013 09:33 AM QUIT TOBACCO >[address] [facility] May 10, 2012 03:52 PM QUIT TOBACCO >[address] [facility] Aug 26, 2011 10:14 AM QUIT TOBACCO >[address] [facility] Feb 21, 2011 10:46 AM QUIT TOBACCO >[address] [facility] Jun 03, 2010 03:27 PM QUIT TOBACCO >[address] [facility] Oct 29, 2009 09:54 AM QUIT TOBACCO >[address] [facility] Aug 07, 2008 08:25 AM QUIT TOBACCO >[address] [facility] Aug 03, 2007 09:38 AM QUIT TOBACCO >7 YEARS AGO [facility] Jul 27, 2006 08:05 AM QUIT TOBACCO >[address] A[address] [facility] Encounter Notes: All associated encounter notes This section contains the clinical notes associated to the Encounter. Date/Time Encounter Note(s) Provider Source Aug 14, 2024 09:30 AM ADDENDUM: LOCAL TITLE: Addendum STANDARD TITLE: ADDENDUM DATE OF NOTE: AUG 14, 2024@09:30:48 ENTRY DATE: AUG 14, 2024@09:30:49 AUTHOR: ADELAIDA GARCIA DO EXP COSIGNER: URGENCY: STATUS: COMPLETED Please send pt copy of his labs. We discussed most at appt yesterday, but psa was not available yet. Thank you /tressa/ ADELAIDA GARCIA DO Attending Physician, [facility] Signed: 08/14/2024 09:31 Receipt Acknowledged By: 08/14/2024 11:26 /tressa/ GUZMAN GOMEZ REGISTERED NURSE --- Original Document --- 08/13/24 PRIMARY CARE: CC:Follow up HPI: 78 yo here for 6 mo follow up. Since last appt, he is doing well. He had some lateral R foot pain for a few days, but improved today. He denies any other concerns. He admits weight gaiun this winter due to not being as active. He is using tramadol a little more regulalry during golfing season. He usually golfs 3-5 times a week in summer and using tramadol 2-3 times a week. He does not see local drs regularly ROS: Gen: No f/c CV: NO CP, Palpitations Pulm: No SOB, Cough, wheeze GI:No N/V/D/C, no Gerd, No black/bloody bms : No dysuria, No hematuria MSK:No new back pain Neuro:No DC, no weakness PMH: HTN hyperlipidemia prostate ca s/p seed implant 2003-urologist f/u allergies Rt. 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[place]-, [place], agent orange Family HX: N/c Allergies: Statin intolerant- myalgias PE: VSD - Last Set Vitals Date Vital Measurement Qualifiers 08/13/2024 10:09 BP 148/74 Ht in (cm) 71 (180.34) Estimated 08/13/2024 10:08 Temp F (C) 98 (36.7) Pulse 69 Wt lbs (kg)[BMI] 263 (119.29)[37*]Actual, Standing Weight POx (L/Min)(%) 95 Room Air 08/13/2024 10:06 Pain 3 10/06/2021 09:17 Respir 16 Gen: NAD, A and O x 3, cooperative with interview and exam HEENT:NC/AT, MMM CV: RRR, S1S2 Pulm: CTAB,NO wheezing, rhonchi or rales ABD:Soft, Nt/ND, no palpable organomegaly EXT: No c/c, No edema Neuro: CN II-XII grossly intact, normal gait MSK:No gross deformities of spine Skin: no rash ========= Labs and Studies: COMPREHENSIVE METABOLIC PANEL; BLOOD Alis. Date: 08/13/24 09:19 02/13/24 10:49 Test Name Result Result Units Range GLUCOSE 135 H 129 H mg/dL 74 - 109 UREA NITROGEN 18 17 mg/dL 7 - 25 CREATININE 1.0 1.1 mg/dL 0.57 - 1.25 SODIUM 141 139 mmol/L 136 - 145 POTASSIUM 5.0 5.1 mmol/L 3.5 - 5.1 CHLORIDE 103 102 mmol/L 98 - 107 CO2 32 H 32 H mmol/L 21 - 31 CALCIUM 10.5 H 10.6 H mg/dL 8.6 - 10.3 PROTEIN,TOTAL 7.4 7.8 g/dl 6.4 - 8.9 ALBUMIN 4.2 4.4 g/dL 3.5 - 5.7 TOT. BILIRUBIN 0.7 1.0 mg/dL 0.3 - 1.0 ALKALINE PHOSPH 53 56 U/L 34 - 104 SGOT(AST) 14 15 U/L 13 - 39 SGPT(ALT) 13 13 U/L 7 - 52 EGFR 78 69 - eGFR (mL/min/1.73 m2) CKD stage Interpretation >=90 G1 Normal 60-89 G2 Mild decrease 45-59 G3A Mild to moderate decrease 30-44 G3B Moderate to severe decrease 15-29 G4 Severe decrease <15 G5 Kidney failure TSH: 1.0508 (12/20/22 10:26) Creatinine: 1.0 (08/13/24 09:19) Collection DT Spec HGB A1C 08/13/2024 09:19 BLOOD 6.3 H 02/13/2024 10:49 BLOOD 6.2 H Collection DT Spec calcLDL HDL CHOL TRIG 08/13/2024 09:19 BLOOD 133 H 38 195 120 PSA <0.008 (02/13/24 10:49) CBC WITH DIFFERENTIAL; BLOOD Alis. Date: 08/13/24 09:19 02/13/24 10:49 Test Name Result Result Units Range WBC 12.97 H 12.85 H K/mcL 4.0 - 11.0 RBC 5.22 5.43 M/mcL 4.1 - 5.8 HGB 15.7 16.4 g/dl 12.1 - 17.2 HCT 48.0 50.0 % 38 - 51 MCV 92.0 92.1 fl 80 - 100 MCH 30.1 30.2 pg 26 - 32 MCHC 32.7 32.8 g/dl 32.0 - 37.5 PLATELET 235 238 K/mcL 130 - 400 MPV 9.2 9.2 fL 8.9 - 12.7 LYMPH, ABSOLUTE 2.84 K/mcL 1.0 - 3.0 NEUTROPHIL, ABS 8.21 H K/mcL 2.0 - 7.0 EOSINO, ABSOLUT 0.61 H K/mcL 0.0 - 0.5 BASO, ABSOLUTE 0.08 K/mcL 0.0 - 0.2 LYMPH % AUTOMAT 21.9 % - MONOS % AUTOMAT 9.1 % - MONOS, ABSOLUTE 1.18 H K/mcL 0.3 - 0.9 NEUTRO % AUTOMA 63.3 % - EOSIN % AUTOMAT 4.7 % - BASO % AUTOMATE 0.6 % - RDW-CV 12.7 13.2 % 11.5 - 14.5 IMMATURE GRANUL 0.4 % 0.0 - 0.5 NRBC% 0.0 % 0 - 0.2 NRBC# <0.01 K/mcL 0 - 0.012 Vitamin D: Collection DT Specimen Test Name Result Units Ref Range 12/20/2022 10:26 BLOOD Vitamin D,Total 68.3 ng/mL 30.0 - 80.0 Labs reviewed and d/w pt ========= A/P: -HTN.Elevated today. Pt to recheck at home.Cont lisinopril 20mg/d and atenolol 50mg/d R foot pain- Check uric acid. COnt to monitor -HYPERLIPIDEMIA. not tolerated statins. Consider Phaser testing. -TYPE 2 DIABETES. DM stable. WOrk on healthy eating. If HGa1c rises above 7, would start meds -PRIMARY HYPERPARATHYROIDISM. Endocrinology recommended observation. labs. -H/O PROSTATE CANCER; S/P XRT Seed Implants.He Requests every 6m psa -H/O SOLITARY LT. 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 labs. avoid nsaids. -URINARY FREQUENCY. controlled. continue tamsulosin. -RT. KNEE PAIN.- Stable. Cont prn PT exercises. USes about 10 tramadol /mo in summer and 1/mo in winter -Diverticulitis- Cont dietary changes. Rpt scope around 09-11 DR Duenas/Dave -CRC last in 2020- due rpt in 2025 -Toxic environmental exposure- stable. no new c/o HM- Flu and covid today. Pt declined RSV today If well, rtc 6m for routine f/u, and prn Total time spent face to face and in chart review and documentation for this visit:35m P-MEDICATION RECONCILIATION: Review of medications with the patient at the time of this encounter included: Patient local and remote allergies, active and pending prescriptions dispensed from this MD (local) and dispensed from another MD or [facility] facility (remote) as well as local inpatient and clinic medications (IMOs), locally documented non-VA medications and local prescriptions that have or been discontinued in the past 90 days. With the exception of allergies, if a category is not listed below, it means there were no relevant medications for the patient. The patient /family member received an updated list of current medications. Patient verbalized understanding. Local & Remote Allergies: HCTZ HYDROCHLOROTHIAZIDE, SIMVASTATIN, ATORVASTATIN Active Outpatient Medications (including Supplies): ATENOLOL 50MG TAB TAKE ONE TABLET BY MOUTH ONCE DAILY ACTIVE Indication: FOR BLOOD PRESSURE LISINOPRIL 20MG TAB TAKE ONE TABLET BY MOUTH ONCE DAILY ACTIVE Indication: FOR BLOOD PRESSURE MELOXICAM 15MG TAB TAKE ONE TABLET BY MOUTH ONCE DAILY - ACTIVE TAKE WITH FOOD Indication: FOR PAIN AND INFLAMMATION TRAMADOL HCL 50MG TAB TAKE 1 TABLET BY MOUTH FOUR TIMES A ACTIVE DAY NEEDED Indication: FOR PAIN TRAZODONE HCL 100MG TAB TAKE ONE TABLET BY MOUTH AT ACTIVE BEDTIME Indication: FOR SLEEP HTN Assess for Elevated BP>=140/90: The patient's blood pressure is usually adequately controlled. No medication changes are indicated at this time. Opioid Treatment Reminder: The [place]'s opioid therapy was discussed during today's visit. The continues to show benefit from his/her opioid therapy (i.e., improved control of pain with improved social and physical functioning). There is no evidence for adverse events or aberrant opioid-related behavior during today's visit. The risks, including , of concurrent therapy with benzodiazepines and opiates were discussed. The [place]'s questions were answered and the expressed understanding and accepts these risks. The increased risk of and injury with high-dose opiate therapy, greater than 100 morphine equivalent doses per day, were explained to the [place]. The [place]'s questions were answered and the [place] expressed understanding and accepts these risks. The [place] was offered opiate or benzodiazepine reduction of therapy, but declined. /tressa/ ADELAIDA GARCIA DO Attending Physician, [facility] Signed: 08/13/2024 11:34 ADELAIDA GARCIA DO [facility] Aug 13, 2024 11:10 AM PRIMARY CARE IMMUN IZATION NOTE: LOCAL TITLE: IMMUNIZATIONS STANDARD TITLE: PRIMARY CARE IMMUNIZATION NOTE DATE OF NOTE: AUG 13, 2024@11:10 ENTRY DATE: AUG 13, 2024@11:10:59 AUTHOR: LORENZA PANDEY EXP COSIGNER: URGENCY: STATUS: COMPLETED COVID-19 Immunization Pfizer Monovalent (Comirnaty) Administered: COVID-19 (PFIZER), MRNA, LNP-S, PF, EDOUARD-SUCROSE, 30 MCG/0.3 ML (AGES 12+ YEARS) Date Administered: Aug 13, 2024 10:00 Consultant Technology: [employer] Lot: [id number] Exp Date: Oct 21, 2024 ND: [id number] Admin Route/Site: INTRAMUSCULAR/LEFT DELTOID Dosage: 0.5mL Vaccine Information Statement(s): COVID-19 MRNA VACCINE (12+ YRS) VIS May 02, 2024 (SIERRA LEONEAN) Order By: Policy Administered By: Lorenza Pandey Vaccine administered without complications. JLV reviewed and no evidence of prior immunization for this dose Influenza Immunization Influenza, High-Dose, Trivalent, Preservative Free (Fluzone-Syringe) Administered: INFLUENZA, HIGH-DOSE, TRIVALENT, PF Date Administered: Aug 13, 2024 10:00 Consultant Technology: [employer] Lot: [id number] Exp Date: Jan 13, 2025 Admin Route/Site: INTRAMUSCULAR/RIGHT DELTOID Dosage: 0.5mL Vaccine Information Statement(s): INFLUENZA(FLU) VACC(INACTIVATED OR RECOMBINANT)VIS Feb 19, 2021 ([facility]ER[facility] LEONE[facility]) Order By: Policy Administered By: Lorenza Pandey The Influenza Vaccine Information Statement (VIS) was reviewed with the patient/caregiver which lists the benefits and risks of the vaccine and the risks of not receiving the Influenza vaccine. The patient/caregiver denied any prior severe reaction to this vaccine or its components or a severe allergic reaction, such as anaphylaxis, to any vaccine or any injectable therapy. The patient/caregiver gave verbal consent to receive the vaccine. [place] is NOT due for shingles (Shingrix) immunization at this time /tressa/ LORENZA PANDEY LPN Licensed Practical Nurse Signed: 08/13/2024 11:14 LORENZA PANDEY [facility] Aug 13, 2024 10:09 AM PRIMARY CARE OUTPA [facility] NOTE: LOCAL TITLE: PRIMARY CARE STANDARD TITLE: PRIMARY CARE OUTPATIENT NOTE DATE OF NOTE: AUG 13, 2024@10:09 ENTRY DATE: AUG 13, 2024@10:09:48 AUTHOR: ADELAIDA GARCIA DO EXP COSIGNER: URGENCY: STATUS: COMPLETED PRIMARY CARE Has ADDENDA CC:Follow up HPI: 78 yo here for 6 mo follow up. Since last appt, he is doing well. He had some lateral R foot pain for a few days, but improved today. He denies any other concerns. He admits weight gaiun this winter due to not being as active. He is using tramadol a little more regulalry during golfing season. He usually golfs 3-5 times a week in summer and using tramadol 2-3 times a week. He does not see local drs regularly ROS: Gen: No f/c CV: NO CP, Palpitations Pulm: No SOB, Cough, wheeze GI:No N/V/D/C, no Gerd, No black/bloody bms : No dysuria, No hematuria MSK:No new back pain Neuro:No DC, no weakness PMH: HTN hyperlipidemia prostate ca s/p seed implant 2003-urologist f/u allergies Rt. 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, [place], agent orange Family HX: N/c Allergies: Statin intolerant- myalgias PE: VSD - Last Set Vitals Date Vital Measurement Qualifiers 08/13/2024 10:09 BP 148/74 Ht in (cm) 71 (180.34) Estimated 08/13/2024 10:08 Temp F (C) 98 (36.7) Pulse 69 Wt lbs (kg)[BMI] 263 (119.29)[37*]Actual, Standing Weight POx (L/Min)(%) 95 Room Air 08/13/2024 10:06 Pain 3 10/06/2021 09:17 Respir 16 Gen: NAD, A and O x 3, cooperative with interview and exam HEENT:NC/AT, MMM CV: RRR, S1S2 Pulm: CTAB,NO wheezing, rhonchi or rales ABD:Soft, Nt/ND, no palpable organomegaly EXT: No c/c, No edema Neuro: CN II-XII grossly intact, normal gait MSK:No gross deformities of spine Skin: no rash ========= Labs and Studies: COMPREHENSIVE METABOLIC PANEL; BLOOD Alis. Date: 08/13/24 09:19 02/13/24 10:49 Test Name Result Result Units Range GLUCOSE 135 H 129 H mg/dL 74 - 109 UREA NITROGEN 18 17 mg/dL 7 - 25 CREATININE 1.0 1.1 mg/dL 0.57 - 1.25 SODIUM 141 139 mmol/L 136 - 145 POTASSIUM 5.0 5.1 mmol/L 3.5 - 5.1 CHLORIDE 103 102 mmol/L 98 - 107 CO2 32 H 32 H mmol/L 21 - 31 CALCIUM 10.5 H 10.6 H mg/dL 8.6 - 10.3 PROTEIN,TOTAL 7.4 7.8 g/dl 6.4 - 8.9 ALBUMIN 4.2 4.4 g/dL 3.5 - 5.7 TOT. BILIRUBIN 0.7 1.0 mg/dL 0.3 - 1.0 ALKALINE PHOSPH 53 56 U/L 34 - 104 SGOT(AST) 14 15 U/L 13 - 39 SGPT(ALT) 13 13 U/L 7 - 52 EGFR 78 69 - eGFR (mL/min/1.73 m2) CKD stage Interpretation >=90 G1 Normal 60-89 G2 Mild decrease 45-59 G3A Mild to moderate decrease 30-44 G3B Moderate to severe decrease 15-29 G4 Severe decrease <15 G5 Kidney failure TSH: 1.0508 (12/20/22 10:26) Creatinine: 1.0 (08/13/24 09:19) Collection DT Spec HGB A1C 08/13/2024 09:19 BLOOD 6.3 H 02/13/2024 10:49 BLOOD 6.2 H Collection DT Spec calcLDL HDL CHOL TRIG 08/13/2024 09:19 BLOOD 133 H 38 195 120 PSA <0.008 (02/13/24 10:49) CBC WITH DIFFERENTIAL; BLOOD Alis. Date: 08/13/24 09:19 02/13/24 10:49 Test Name Result Result Units Range WBC 12.97 H 12.85 H K/mcL 4.0 - 11.0 RBC 5.22 5.43 M/mcL 4.1 - 5.8 HGB 15.7 16.4 g/dl 12.1 - 17.2 HCT 48.0 50.0 % 38 - 51 MCV 92.0 92.1 fl 80 - 100 MCH 30.1 30.2 pg 26 - 32 MCHC 32.7 32.8 g/dl 32.0 - 37.5 PLATELET 235 238 K/mcL 130 - 400 MPV 9.2 9.2 fL 8.9 - 12.7 LYMPH, ABSOLUTE 2.84 K/mcL 1.0 - 3.0 NEUTROPHIL, ABS 8.21 H K/mcL 2.0 - 7.0 EOSINO, ABSOLUT 0.61 H K/mcL 0.0 - 0.5 BASO, ABSOLUTE 0.08 K/mcL 0.0 - 0.2 LYMPH % AUTOMAT 21.9 % - MONOS % AUTOMAT 9.1 % - MONOS, ABSOLUTE 1.18 H K/mcL 0.3 - 0.9 NEUTRO % AUTOMA 63.3 % - EOSIN % AUTOMAT 4.7 % - BASO % AUTOMATE 0.6 % - RDW-CV 12.7 13.2 % 11.5 - 14.5 IMMATURE GRANUL 0.4 % 0.0 - 0.5 NRBC% 0.0 % 0 - 0.2 NRBC# <0.01 K/mcL 0 - 0.012 Vitamin D: Collection DT Specimen Test Name Result Units Ref Range 12/20/2022 10:26 BLOOD Vitamin D,Total 68.3 ng/mL 30.0 - 80.0 Labs reviewed and d/w pt ========= A/P: -HTN.Elevated today. Pt to recheck at home.Cont lisinopril 20mg/d and atenolol 50mg/d R foot pain- Check uric acid. COnt to monitor -HYPERLIPIDEMIA. not tolerated statins. Consider Phaser testing. -TYPE 2 DIABETES. DM stable. WOrk on healthy eating. If HGa1c rises above 7, would start meds -PRIMARY HYPERPARATHYROIDISM. Endocrinology recommended observation. labs. -H/O PROSTATE CANCER; S/P XRT Seed Implants.He Requests every 6m psa -H/O SOLITARY LT. 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 labs. avoid nsaids. -URINARY FREQUENCY. controlled. continue tamsulosin. -RT. KNEE PAIN.- Stable. Cont prn PT exercises. USes about 10 tramadol /mo in summer and 1/mo in winter -Diverticulitis- Cont dietary changes. Rpt scope around 2-26 DR Duenas/Dave -CRC last in 2020- due rpt in 2025 -Toxic environmental exposure- stable. no new c/o HM- Flu and covid today. Pt declined RSV today If well, rtc 6m for routine f/u, and prn Total time spent face to face and in chart review and documentation for this visit:35m P-MEDICATION RECONCILIATION: Review of medications with the patient at the time of this encounter included: Patient local and remote allergies, active and pending prescriptions dispensed from this MD (local) and dispensed from another MD or DoD facility (remote) as well as local inpatient and clinic medications (IMOs), locally documented non-VA medications and local prescriptions that have or been discontinued in the past 90 days. With the exception of allergies, if a category is not listed below, it means there were no relevant medications for the patient. The patient /family member received an updated list of current medications. Patient verbalized understanding. Local & Remote Allergies: HCTZ HYDROCHLOROTHIAZIDE, SIMVASTATIN, ATORVASTATIN Active Outpatient Medications (including Supplies): ATENOLOL 50MG TAB TAKE ONE TABLET BY MOUTH ONCE DAILY ACTIVE Indication: FOR BLOOD PRESSURE LISINOPRIL 20MG TAB TAKE ONE TABLET BY MOUTH ONCE DAILY ACTIVE Indication: FOR BLOOD PRESSURE MELOXICAM 15MG TAB TAKE ONE TABLET BY MOUTH ONCE DAILY - ACTIVE TAKE WITH FOOD Indication: FOR PAIN AND INFLAMMATION TRAMADOL HCL 50MG TAB TAKE 1 TABLET BY MOUTH FOUR TIMES A ACTIVE DAY NEEDED Indication: FOR PAIN TRAZODONE HCL 100MG TAB TAKE ONE TABLET BY MOUTH AT ACTIVE BEDTIME Indication: FOR SLEEP HTN Assess for Elevated BP>=140/90: The patient's blood pressure is usually adequately controlled. No medication changes are indicated at this time. Opioid Treatment Reminder: The 's opioid therapy was discussed during today's visit. The [place] continues to show benefit from his/her opioid therapy (i.e., improved control of pain with improved social and physical functioning). There is no evidence for adverse events or aberrant opioid-related behavior during today's visit. The risks, including , of concurrent therapy with benzodiazepines and opiates were discussed. The 's questions were answered and the [place] expressed understanding and accepts these risks. The increased risk of and injury with high-dose opiate therapy, greater than 100 morphine equivalent doses per day, were explained to the . The 's questions were answered and the [place] expressed understanding and accepts these risks. The [place] was offered opiate or benzodiazepine reduction of therapy, but declined. /tressa/ ADELAIDA GARCIA DO Attending PhysicianSonya Signed: 08/13/2024 11:34 08/14/2024 ADDENDUM STATUS: COMPLETED Please send pt copy of his labs. We discussed most at appt yesterday, but psa was not available yet. Thank you /gaby GARCIA DO Attending PhysicianSonya Signed: 08/14/2024 09:31 Receipt Acknowledged By: * AWAITING SIGNATURE * GUZMAN GOMEZ NAZIA Y DO [facility] Aug 13, 2024 10:06 AM PRIMARY CARE NURSI NG NOTE: LOCAL TITLE: PRIMARY CARE PREVENTIVE HEALTH STANDARD TITLE: PRIMARY CARE NURSING NOTE DATE OF NOTE: AUG 13, 2024@10:06 ENTRY DATE: AUG 13, 2024@10:06:09 AUTHOR: LORENZA PANDEY COSIGNER: URGENCY: STATUS: COMPLETED S: Vet in clinic for Primary Care Appointment. O: V/S entered P: To see the Provider N-Pain Screen: Are you currently experiencing pain? Yes - DVPRS scale used to assess Location: rt hip Defense and Veterans Pain Rating Scale (DVPRS): Pain Score: 3 Patient's acceptable pain goal: N-MEDICATION RECONCILIATION: Review of medications and allergies at the time of this encounter included: Local and remote allergies, active and pending prescriptions dispensed from this MD (local) and dispensed from another MD or DoD facility (remote) as well as local inpatient and clinic medications (IMOs), locally documented non-VA medications and local prescriptions that have or been discontinued in the past 90 days. If a category is not listed below, it means there were no known relevant local and/or remote medications and/or allergies. The patient/family member received an updated list of current medications. Local & Remote Allergies: HCTZ HYDROCHLOROTHIAZIDE, SIMVASTATIN, ATORVASTATIN Active Outpatient Medications (including Supplies): ATENOLOL 50MG TAB TAKE ONE TABLET BY MOUTH ONCE DAILY ACTIVE Indication: FOR BLOOD PRESSURE LISINOPRIL 20MG TAB TAKE ONE TABLET BY MOUTH ONCE DAILY ACTIVE Indication: FOR BLOOD PRESSURE MELOXICAM 15MG TAB TAKE ONE TABLET BY MOUTH ONCE DAILY - ACTIVE TAKE WITH FOOD Indication: FOR PAIN AND INFLAMMATION TRAMADOL HCL 50MG TAB TAKE 1 TABLET BY MOUTH FOUR TIMES A ACTIVE DAY NEEDED Indication: FOR PAIN TRAZODONE HCL 100MG TAB TAKE ONE TABLET BY MOUTH AT ACTIVE BEDTIME Indication: FOR SLEEP N-Stress Discussed ([facility]): DENIES experiencing substantial stress or worry in the past month. Tobacco Use Screening: The patient is a former cigarette smoker. The patient has never used other types of tobacco. N-Advance Directive: Patient's advance directive status: Patient does not have an advance directive. Patient is not interested in an advance directive at this time. /tressa/ LORENZA PANDEY LPN Licensed Practical Nurse Signed: 08/13/2024 10:[address] [facility]
--- OUTSIDE RECORDS SUMMARY | 2024-08-27 06:30 | XMS_ITS | Encounter Summary ---
Author Name [facility] [place] Organization [facility] [place] Address [address] [place] [address] Care Team Providers Care Merchandise Examiner Name Role Phone ADELAIDA GARCIA Primary Care [...] F PLAN F Aug 17, 2011 MEDIGAP [id number] [phone] WIDO DARIEL UGLAS PATIENT AETNA [facility] (WNR) MEDICARE ADVANTAGE [facility] Jul 17, 2021 [id number] [place] [id number] [phone] WIEDDO WILNER UGLAS PATIENT [employer] [facility] (WNR) MEDICARE ADVANTAGE [facility] (WNR) Jul 17, 2021 [id number] [place] [id number] WIEDLE, UGLAS PATIENT MEDICARE (WNR) MEDICARE (M) PART A Aug 17, 2011 PART A [id number] WIEDLEDO UGLAS PATIENT MEDICARE (WNR) MEDICARE (M) PART B Aug 17, 2011 PART B [id number] WIEDDO SATISH DARBYLAS PATIENT Selected Encounter This section includes the information on record at [place] for the Encounter. Date/Time Encounter Type Encounter Description Reason Provider Source Aug 27, 2024 10:30 AM HEARING AID REPAIR/MODIFYIN G AUDIOLOGY ICD-10-CM Z46.1 Encounter for fitting and adjustment of hearing aid PRICE GARIBAY IHHa Encounter Template Text not used by [place] Assessments - Encounter Diagnoses This section includes the primary and secondary diagnoses documented for the Encounter. Date/Time Primary/Secondary Diagnosis Diagnosis Name Provider Source Aug 27, 2024 10:24 AM PRIMARY Encounter for fitting and adjustment of hearing aid NOLBERTOGIOVANIAUGUSTINShyam Bonner [facility] Plan of Treatment: Future Appointments (+ 6 months) and Future Tests (+/- 45 days) The Plan of Treatment section includes future care activities for the patient from all [place] treatmentfacilities. This section includes future appointments and future orders which are active, pending or scheduled. Future Appointments This section includes appointments that were scheduled to occur 6 months from the date of the Encounter, up to a maximum of 20 appointments. The data comes from all [place] treatment facilities. Appointment Date/Time Appointment Type Appointme nt Facility Name Feb 06, 2025 11:30 AM AMBULATORY - MEDICINE [facility] Lab Results: +/- 30 days of the encounter This section includes the Chemistry and Hematology Lab Results on record with [place] for the patient. Radiology Reports and Pathology Reports are provided separately, in subsequent sections. Lab Results This section contains the Chemistry/Hematology Results that were resulted 30 days before or 30 daysafter the date of the Encounter. Date/Time Source Result Type Result - Unit Interpretation Reference Range Specimen Type Comment Aug 13, 2024 09:34 AM [facility] MICROALBUMIN URINE PANEL,RANDOM URINE,RA NDOM Specimen Type: URINE,RANDOM No comment entered. Ordering Provider: ADELAIDA GARCIA DO Report Released Date/Time: Aug 12, 2024 05:18 PM Reporting Lab: [address] [address] Performing Lab: [address] [address] CREATININE 140 mg/dL MICROALBUMIN,RANDOM 1.5 mg/dL MICRO/CREAT RATIO 10.7 mg/g Aug 13, 2024 09:19 AM [facility] LIPID PROFILE BLOO D Specimen Type: BLOOD No comment entered. Ordering Provider: ADELAIDA GARCIA DO Report Released Date/Time: Aug 12, 2024 05:18 PM Reporting Lab: [facility] [address] [facility] [address] Performing Lab: [facility] [address] [facility] [address] CHOLESTEROL 195 mg/dL <200 TRIGLYCERIDE 120 mg/dL HDL CHOLESTEROL 38 mg/dL LDL CHOLESTEROL,calc 133 mg/dL H <130 Aug 13, 2024 09:19 AM [facility] TSH BLOOD Specimen Type: BLOOD No comment entered. Ordering Provider: ADELAIDA GARCIA DO Report Released Date/Time: Aug 12, 2024 05:18 PM Reporting Lab: [address] Performing Lab: [address] TSH 1.748 u[IU]/mL 0.45-5.33 Aug 13, 2024 09:19 AM [facility] HGB A1C (with eAG) BLOOD Specimen Ty pe: BLOOD No comment entered. Ordering Provider: ADELAIDA GARCIA DO Report Released Date/Time: Aug 12, 2024 05:18 PM Reporting Lab: [facility] [address] [facility] [address] Performing Lab: [facility] [address] [facility] [address] HGB A1C 6.3 H 4.0-6.0 ESTIMATE AVG GLUCOSE 134 mg/dL Aug 13, 2024 09:19 AM [facility] PSA BLOOD Specimen Type: BLOOD No comment entered. Ordering Provider: ADELAIDA GARCIA DO Report Released Date/Time: Aug 12, 2024 05:20 PM Reporting Lab: [place] [id number] Performing Lab: [place] [id number] PSA <0.008 ng/mL <4.000 Aug 13, 2024 09:19 AM [facility] URIC ACID BLOOD Specimen Type: BLOOD No comment entered. Ordering Provider: ADELAIDA GARCIA DO Report Released Date/Time: Aug 12, 2024 05:18 PM Reporting Lab: [place] [address] [facility] [address] Performing Lab: [address] [facility] [address] URIC ACID 6.4 mg/dL 4.4-7.6 Aug 13, 2024 09:19 AM [facility] COMPREHENSIVE METABOLIC PANEL BLOOD Specimen Type: BLOOD No comment entered. Ordering Provider: ADELAIDA GARCIA DO Report Released Date/Time: Aug 12, 2024 05:18 PM Reporting Lab: [address] [facility] [address] Performing Lab: [address] [facility] [address] CREATININE 1.0 mg/dL 0.6-1.3 UREA NITROGEN 18 [...] 78 mL/min/{1.73_m2} Aug 13, 2024 09:19 AM [facility] CBC WITH DIFFERENTIAL BLOOD Specimen Type: BLOOD No comment entered. Ordering Provider: ADELAIDA GARCIA DO Report Released Date/Time: Aug 12, 2024 05:18 PM Reporting Lab: [address] [facility] [address] Performing Lab: [address] [facility] [address] WBC 12.97 10*3/uL H 4.00-11.00 RBC 5.22 [...] 0.0-0.5 NRBC% 0.0 NRBC# <0.01 10*3/uL 0.000-0.012 Social History: Smoking Status (Most current) and Tobacco Use (All prior to encounter date) This section includes the most current, and the historical, smoking and tobacco- related health factors from the [place] facility where the Encounter took place. Current Smoking Status This section includes the most current smoking, or tobacco-related health factor, from the [place] facility where the Encounter took place. Date/Time Current Smoking Status Comment Juliet [email or web address] Aug 13, 2024 10:00 AM [place]-TOBACCO USE FORMER CIGARETTES [facility] Tobacco Use History This section includes a history of the smoking, or tobacco-related health factors, that were collected on or before the date of the Encounter. The data comes from the [place] facility where the Encounter took place. Date/Time Smoking Status/Tobacco Use Comment F acfrank Aug 13, 2024 10:00 AM VA-TOBACCO USE FORMER CIGARETTES [facility] Aug 18, 2023 10:00 AM [place]-TOBACCO FORMER USER [facility] Aug 18, 2023 10:00 AM [place]-TOBACCO QUIT 15 YRS OR MORE [facility] Apr 22, 2022 10:00 AM VA-TOBACCO FORMER USER [facility] Apr 22, 2022 10:00 AM [place]-TOBACCO QUIT 15 YRS OR MORE [facility] Mar 26, 2021 10:00 AM VA-TOBACCO FORMER USER [facility] Mar 26, 2021 10:00 AM VA-TOBACCO QUIT 15 YRS OR MORE [facility] Oct 26, 2018 10:41 AM VA-TOBACCO FORMER USER [facility] Oct 26, 2018 10:41 AM VA-TOBACCO QUIT 15 YRS OR MORE [facility] Oct 20, 2017 11:30 AM VA-TOBACCO FORMER USER [facility] Oct 20, 2017 11:30 AM VA-TOBACCO QUIT 15 YRS OR MORE [facility] Oct 20, 2017 10:23 AM QUIT TOBACCO >12 MO [facility] Apr 21, 2017 11:26 AM QUIT TOBACCO >12 MO [facility] Oct 20, 2016 09:50 AM QUIT TOBACCO >12 MO [facility] Jul 07, 2015 08:22 AM LIFETIME NON-USER OF TOBACCO [facility] Jul 07, 2015 08:22 AM QUIT TOBACCO >12 MO [facility] November 18, 2014 09:14 AM QUIT TOBACCO >12 MO [facility] Nov 04, 2013 01:22 PM QUIT TOBACCO >12 MO [facility] Jun 24, 2013 09:33 AM QUIT TOBACCO >12 MO [facility] May 10, 2012 03:52 PM QUIT TOBACCO >12 MO [facility] Aug 26, 2011 10:14 AM QUIT TOBACCO >12 MO [facility] Feb 21, 2011 10:46 AM QUIT TOBACCO >12 MO [facility] Jun 03, 2010 03:27 PM QUIT TOBACCO >12 MO [facility] Oct 29, 2009 09:54 AM QUIT TOBACCO >12 MO [facility] Aug 07, 2008 08:25 AM QUIT TOBACCO >12 MO [facility] Aug 03, 2007 09:38 AM QUIT TOBACCO >7 YEARS AGO [facility] Jul 27, 2006 08:05 AM QUIT TOBACCO >7 YEARS AGO [facility] Encounter Notes: All associated encounter notes This section contains the clinical notes associated to the Encounter. Date/Time Encounter Note(s) Provider Source Aug 27, 2024 10:17 AM AUDIOLOGY DIAGNOST IC STUDY NOTE: LOCAL TITLE: AUDIOLOGY HEARING AID STANDARD TITLE: AUDIOLOGY DIAGNOSTIC STUDY NOTE DATE OF NOTE: AUG 27, 2024@10:17 ENTRY DATE: AUG 27, 2024@10:17:26 AUTHOR: ANTONIA TANG EXP COSIGNER: URGENCY: STATUS: COMPLETED Pronounced [facility] Model: Reyna Malik Q90 P BTEs Serial#: [id number] Serial#: [id number] SCHEDULED APPOINTMENT (Face to Face) Patient complaint: Tube change Initial visual inspection/listening check: -BOTH hearing aids tubes are hard and need changed Repair actions taken: -Cleaned and checked hearing aids -Cleaned and checked earmolds -Replaced batteries -Vacuumed microphone ports -Replaced tubing/tonehooks Used size 12 tubing Etters verified fit of the tubing After above actions taken: -Listening check OK, BOTH hearing aids functional -BOTH Functional hearing aids returned to the Etters pleased with today's visit. Recommend return to clinic PRN. /tressa/ ANTONIA TANG BARREL CHARRER Signed: 08/27/2024 10:35 Receipt Acknowledged By: 08/27/2024 10:49 /tressa/ KRYSTINA GARIBAY OPERATING ROOM RN ANTONIA TANG [facility]
--- OUTSIDE RECORDS SUMMARY | 2025-02-06 07:30 | XMS_ITS | Encounter Summary ---
Author Name [facility] [place] [facility] [place] Organization [facility] [place] Address [address] [place] [id number] Care Team Providers Care [employer] Speech Language Pathologist Name Role Phone ANNABELLA GARCIA Primary Care Provider Unavailabl e Insurance [...] F PLAN F Aug 17, 2011 MEDIGAP [id number] [phone] [id number] WIEDLE,DO UGLAS PATIENT AETNA MCR (WNR) MEDICARE ADVANTAGE [facility] ([facility]) Jul 17, 2021 [id number] [place] [id number] [phone] WIEDLE,DO UGLAS PATIENT AETNA MCR (WNR) MEDICARE ADVANTAGE [facility] ([facility]) Jul 17, 2021 [id number] [place] [id number] [phone] WIEDLE,DO UGLAS PATIENT MEDICARE (WNR) MEDICARE (M) PART A Aug 17, 2011 PART A [id number] [phone] WIEDLE,DO UGLAS PATIENT MEDICARE (WNR) MEDICARE (M) PART B Aug 17, 2011 PART B [id number] WIEDLE,DO UGLAS PATIENT Selected Encounter This section includes the information on record at [place] for the Encounter. Date/Time Encounter Type Encounter Description Reason Provider Source Feb 06, 2025 11:30 AM OFFICE O/P EST HI 40 MIN PRIMARY CARE/MEDICINE ICD-10-CM I10 Essential (primary) hypertension KAREYSANCHOANNABELLA Luz IHE Encounter Template Text not used by [place] Assessments - Encounter Diagnoses This section includes the primary and secondary diagnoses documented for the Encounter. Date/Time Primary/Secondary Diagnosis Diagnosis Name Provider Source Feb 06, 2025 12:07 PM PRIMARY Essential (primary) hypertension SIDIQ,ANNABELLA Y DO [facility] Feb 06, 2025 12:07 PM SECONDARY Acquired absence of kidney SIDIQ,ANNABELLA Y DO [facility] Feb 06, 2025 12:07 PM SECONDARY Hyperlipidemia, unspecified SIDIQ,ANNABELLA Y DO [facility] Feb 06, 2025 12:07 PM SECONDARY Pain in right knee SIDIQ,ANNABELLA Y DO [facility] Feb 06, 2025 12:07 PM SECONDARY Personal history of malignant neoplasm of prostate [facility],ANNABELLA Y DO [facility] Lab Results: +/- 30 days of the encounter This section includes the Chemistry and Hematology Lab Results on record with [place] for the patient. Radiology Reports and Pathology Reports are provided separately, in subsequent sections. Lab Results This section contains the Chemistry/Hematology Results that were resulted 30 days before or 30 daysafter the date of the Encounter. Date/Time Source Result Type Result - Unit Interpretation Reference Range Specimen Type Comment Feb 06, 2025 12:10 PM [facility] TSH BLOOD Specimen Type: BLOOD No comment entered. Ordering Provider: ANNABELLA GARCIA DO Report Released Date/Time: Feb 06, 2025 10:31 AM Reporting Lab: [address] [address] Performing Lab: [address] [address] TSH 1.232 u[IU]/mL 0.45-5.33 Feb 06, 2025 12:10 PM [facility] HGB A1C (with eAG) BLOOD Specimen Ty pe: BLOOD Comment: ~HGB A1C - Reference Range prior to 97: 3-6.1% Ordering Provider: ANNABELLA GARCIA DO Report Released Date/Time: Feb 06, 2025 10:31 AM Reporting Lab: [facility] [address] [facility] [address] Performing Lab: [facility] [address] [facility] [address] HGB A1C 6.7 H 4.0-6.0 ESTIMATE AVG GLUCOSE 146 mg/dL Feb 06, 2025 12:10 PM [facility] MICROALBUMIN URINE PANEL,RANDOM URINE,RANDOM Specime n Type: URINE,RANDOM Comment: R-Unable to calculate MALB/CREA result Ordering Provider: ANNABELLA GARCIA DO Report Released Date/Time: Feb 06, 2025 10:31 AM Reporting Lab: [address] [address] Performing Lab: [place] [address] CREATININE 68 mg/dL MICROALBUMIN,RANDOM <0.7 mg/dL MICRO/CREAT RATIO comment mg/g Feb 06, 2025 12:10 PM [facility] URINALYSIS URINE,RANDOM Specimen Type: URINE,RANDOM Comment: MICROSCOPIC EXAM NOT INDICATED Ordering Provider: ANNABELLA GARCIA DO Report Released Date/Time: Feb 06, 2025 10:31 AM Reporting Lab: [address] [address] Performing Lab: [address] [address] URINE COLOR YELLOW Yellow SPECIFIC GRAVITY 1.013 1.003-1.035 UROBILINOGEN 0.2 {Magen'U}/dL 0.2-2.0 URINE BILIRUBIN NEGATIVE Negative URINE KETONES NEGATIVE Negative URINE GLUCOSE NEGATIVE Negative URINE PROTEIN NEGATIVE Negative URINE PH 5.5 5.0-9.0 URINE BLOOD NEGATIVE Negative URINE NITRITE NEGATIVE Negative LEUKOCYTE ESTERASE NEGATIVE Negative URINE CLARITY CLEAR Clear Feb 06, 2025 12:10 PM [facility] PSA BLOOD Specimen Type: BLOOD No comment entered. Ordering Provider: ANNABELLA GARCIA DO Report Released Date/Time: Feb 06, 2025 11:53 AM Reporting Lab: [address] [address] Performing Lab: [place] [id number] PSA <0.008 ng/mL <4.000 Feb 06, 2025 12:10 PM [facility] COMPREHENSIVE METABOLIC PANEL BLOOD Specimen Type: BLOOD No comment entered. Ordering Provider: ANNABELLA GARCIA DO Report Released Date/Time: Feb 06, 2025 10:31 AM Reporting Lab: [address] [facility] [address] Performing Lab: [address] [facility] [address] CREATININE 1.0 mg/dL 0.6-1.3 UREA NITROGEN 16 mg/dL 7-25 GLUCOSE 129 mg/dL H 74-109 SODIUM 137 mmol/L 136-145 POTASSIUM 4.3 mmol/L 3.5-5.1 CHLORIDE 102 mmol/L 98-107 CO2 30 mmol/L 21-31 CALCIUM 10.4 mg/dL H 8.6-10.3 PROTEIN,TOTAL 8.0 g/dL 6.4-8.9 ALBUMIN 4.6 g/dL 3.5-5.7 TOT. BILIRUBIN 0.7 mg/dL 0.3-1.0 ALKALINE PHOSPHATASE 57 U/L 34-104 SGOT(AST) 14 U/L 13-39 SGPT(ALT) 13 U/L 7-52 ANION GAP 5 mmol/L 4-12 EGFR 77 mL/min/{1.73_m2} Feb 06, 2025 12:10 PM [facility] CBC WITH DIFFERENTIAL BLOOD Specimen Type: BLOOD No comment entered. Ordering Provider: ANNABELLA GARCIA DO Report Released Date/Time: Feb 06, 2025 10:31 AM Reporting Lab: [address] [facility] [address] Performing Lab: [address] [facility] [address] WBC 12.90 10*3/uL H 4.00-11.00 RBC 5.50 10*6/uL 4.10-5.80 HGB 16.2 g/dL 12.1-17.2 HCT 50.4 38.0-51.0 MCV 91.6 fL 80.0-100.0 MCH 29.5 pg 26.0-32.0 MCHC 32.1 g/dL 32.0-37.5 PLATELET 259 10*3/uL 130-400 MPV 9.1 fL 8.9-12.7 LYMPH, ABSOLUTE AUTOMATED 2.69 10*3/uL 1 .00-3.00 MONOS % AUTOMATED 8.5 MONOS, ABSOLUTE AUTOMATED 1.10 10*3/uL H 0 .30-0.90 LYMPH % AUTOMATED 20.9 BASO, ABSOLUTE AUTOMATED 0.09 10*3/uL 0. 00-0.20 EOSINO, ABSOLUTE AUTOMATED 0.53 10*3/uL H 0.00-0.50 NEUTRO % AUTOMATED 65.6 EOSIN % AUTOMATED 4.1 BASO % AUTOMATED 0.7 NEUTROPHIL, ABSOLUTE AUTOMATED 8.46 10*3/uL H 2.00-7.00 RDW-CV 12.8 11.5-14.5 IMMATURE GRANULOCYTE, PERCENT AUTOMATED 0.2 0.0-0.5 NRBC% 0.0 NRBC# <0.01 10*3/uL 0.000-0.012 Vital Signs: All taken on the encounter date This section contains inpatient and outpatient Vital Signs collected on the date of the Encounter. Date/Time Temperature Pulse Blood Pressure Respiratory Rate SP02 Pain Height Weight Body Mass Index Source Feb 06, 2025 11:23 AM 97.2 F 61 /min 124/78 mm[Hg] 16 /min 97 % 0 254.85 lb 36 [facility] Feb 06, 2025 11:17 AM 124/78 mm[Hg] 0 [facility] Social History: Smoking Status (Most current) and Tobacco Use (All prior to encounter date) This section includes the most current, and the historical, smoking and tobacco- related health factors from the [place] facility where the Encounter took place. Current Smoking Status This section includes the most current smoking, or tobacco-related health factor, from the [place] facility where the Encounter took place. Date/Time Current Smoking Status Comment Facil ity Aug 13, 2024 10:00 AM [place]-TOBAC[place] USE FORMER CIGARETTES [facility] Tobacco Use History This section includes a history of the smoking, or tobacco-related health factors, that were collected on or before the date of the Encounter. The data comes from the [place] facility where the Encounter took place. Date/Time Smoking Status/Tobacco Use Comment F acfrank Aug 13, 2024 10:00 AM [place]-TOBAC[place] USE FORMER CIGARETTES [facility] Aug 18, 2023 10:00 AM [place]-TOBACCO FORMER USER [facility] Aug 18, 2023 10:00 AM VA-TOBACCO QUIT 15 YRS OR MORE [facility] Apr 22, 2022 10:00 AM VA-TOBACCO FORMER USER [facility] Apr 22, 2022 10:00 AM VA-TOBACCO QUIT 15 YRS OR MORE [facility] Mar 26, 2021 10:00 AM VA-TOBACCO FORMER USER [facility] Mar 26, 2021 10:00 AM VA-TOBACCO QUIT 15 YRS OR MORE [facility] Oct 26, 2018 10:41 AM VA-TOBACCO FORMER USER [facility] Oct 26, 2018 10:41 AM VA-TOBACCO QUIT 15 YRS OR MORE [facility] Oct 20, 2017 11:30 AM VA-TOBACCO FORMER USER [facility] Oct 20, 2017 11:30 AM VA-TOBACCO QUIT 15 YRS OR MORE [facility] Oct 20, 2017 10:23 AM QUIT TOBACCO >12 [place] [facility] Apr 21, 2017 11:26 AM QUIT TOBACCO >12 MO [facility] Oct 20, 2016 09:50 AM QUIT TOBACCO >12 MO [facility] Jul 07, 2015 08:22 AM LIFETIME NON-USER OF TOBACCO [facility] Jul 07, 2015 08:22 AM QUIT TOBACCO >12 MO [facility] November 18, 2014 09:14 AM QUIT TOBACCO >12 MO [facility] Nov 04, 2013 01:22 PM QUIT TOBACCO >12 MO [facility] Jun 24, 2013 09:33 AM QUIT TOBACCO >12 MO [facility] May 10, 2012 03:52 PM QUIT TOBACCO >12 MO [facility] Aug 26, 2011 10:14 AM QUIT TOBACCO >12 MO [facility] Feb 21, 2011 10:46 AM QUIT TOBACCO >12 MO [facility] Jun 03, 2010 03:27 PM QUIT TOBACCO >12 MO [facility] Oct 29, 2009 09:54 AM QUIT TOBACCO >12 MO [facility] Aug 07, 2008 08:25 AM QUIT TOBACCO >12 MO [facility] Aug 03, 2007 09:38 AM QUIT TOBACCO >7 YEARS AGO [facility] Jul 27, 2006 08:05 AM QUIT TOBACCO >7 YEARS AGO [facility] Radiology Reports: +/- 30 days of the encounter Radiology Reports For cases when an order for radiology services may have been completed prior to the date of the Encounter, the report list includes the Radiology Reports that were completed up to 30 days before dateof the Encounter. For cases when an order for radiology services may have been completed after the date of the Encounter, the report list also includes the Radiology Reports that were completed up to30 days after date of the Encounter. The data comes from all [place] treatment facilities. Date/Time Radiology Report Provider Source Feb 06, 2025 11:44 AM RIGHT KNEE 4 OR MO RE VIEWS: CHECO CHANG [id number] -[phone] M Exm Date: FEB 06, 2025@11:44 Req Phys: SIDIQ,ANNABELLA Y DO Pat Loc: [facility]AYA PACThor Castañeda MD (Req'g Loc Img Loc: [facility] Service: [place] [address] (Case [id number] COMPLETE)RIGHT KNEE 4 OR MORE VIEWS (RAD Detailed) CPT:42753 Proc Modifiers : RIGHT Reason for Study: R medial knee pain Clinical History: Does the patient have a history of trauma? Yes If Yes, when did it occur: Meniscus repair in 2015 Please provide clinical diagnosis: Report Status: Verified Date Reported: FEB 06, 2025 Date Verified: FEB 06, 2025 Associate Field Service Engineer E-Sig:/ES/CRISTINA ROSE MD Report: PROCEDURE:RIGHT KNEE 4 OR MORE VIEWS, dated:02/06/2025 12:02 PM REASON FOR STUDY: R medial knee pain FINDINGS: 4 projections of the right knee: Impression: No acute fracture, no dislocation. No knee joint effusion. Minimal thickening anterior to the proximal patellar tendon and distal patella, suggestive of a mild prepatellar bursitis. Incidentally noted is scattered small metallic opacities in the soft tissues around the medial and posterior knee, in keeping with metallic foreign bodies, unchanged since 04/23/2019. Finalized by CRISTINA ROSE MD, MD On 02/06/2025 12:23 PM Primary Diagnostic Code: NO NOTIFICATION REQUIRED Primary Interpreting Staff: CRISTINA ROSE MD, Attending Radiologist (Associate Field Service Engineer) /CRISTINA CARLOS MD [facility] Encounter Notes: All associated encounter notes This section contains the clinical notes associated to the Encounter. Date/Time Encounter Note(s) Provider Source Feb 06, 2025 03:07 PM EDUCATION NOTE: LOCAL TITLE: PATIENT LETTER (MAILED TO PATIENT) STANDARD TITLE: EDUCATION NOTE DATE OF NOTE: FEB 06, 2025@15:07 ENTRY DATE: FEB 06, 2025@15:07:55 AUTHOR: ANNABELLA GARCIA DO EXP COSIGNER: URGENCY: STATUS: COMPLETED Health system [address] [place], [place] [address] FEB 06, 2025 506/GA CHECO CHANG [address] [place] [address] Dear Mr. Checo Chang , Thank you for completing your knee xray. The results are as follows: Date Reported: FEB 06, 2025 Report: PROCEDURE:RIGHT KNEE 4 OR MORE VIEWS, dated:02/06/2025 12:02 PM No acute fracture, no dislocation. No knee joint effusion. Minimal thickening anterior to the proximal patellar tendon and distal patella, suggestive of a mild prepatellar bursitis. Incidentally noted is scattered small metallic opacities in the soft tissues around the medial and posterior knee, in keeping with metallic foreign bodies, unchanged since 04/23/2019. ~~~~~~~~~~~~~~~~~~~~~~~~~~~~~ ~~~~~~~~~~~~~~~~~~~~~~~~~~~~~ ~~~~~~~~~~ The knee shows changes of mild inflammation along the tendons. Fortunately, there is no evidence of severe worsening/progression of arthritis. Rest should help decrease some of the inflammation in your knee. Please contact me or my nurse if you have any questions or concerns. Sincerely, Dr. Annabella GARCIA DO Attending Physician, Roceh-ANNABELLA ELLISON DO [facility] Feb 06, 2025 03:05 PM EDUCATION NOTE: LOCAL TITLE: PATIENT LETTER (MAILED TO PATIENT) STANDARD TITLE: EDUCATION NOTE DATE OF NOTE: FEB 06, 2025@15:05 ENTRY DATE: FEB 06, 2025@15:05:57 AUTHOR: ANNABELLA GARCIA DO EXP COSIGNER: URGENCY: STATUS: COMPLETED [facility] [address], [place] [address] FEB 06, 2025 506/GA IMANICHECO [address] [place], [place] [address] Dear Mr. Checo Chang , PSA (Prostate Specific Antigen) is used as a screening test for prostate cancer. In general, 0-4 is considered the normal range for PSA. However the normal range increases as men age. <0.008 (08/13/24 09:19) The lab listed above is as expected. ~~~~~~~~~~~~~~~~~~~~~~~~~~~~~ ~~~~~~~~~~~~~~~~~~~~~~~~~~~~~ ~~~~~~~~~~~~ Hemoglobin A1C gives us information about your diabetes (sugar or glucose) control over the past 3 months. Your target is to keep your A1C below 7. HGB A1C: 6.7 (02/06/25 12:10) The lab listed above is stable and as expected. ~~~~~~~~~~~~~~~~~~~~~~~~~~~~~ ~~~~~~~~~~~~~~~~~~~~~~~~~~~~~ ~~~~~~~~~~~~~ These are tests for kidney function, electrolytes, and liver health. COMPREHENSIVE METABOLIC PANEL; BLOOD Alis. Date: 02/06/25 12:10 08/13/24 09:19 Test Name Result Result Units Range GLUCOSE 129 H 135 H mg/dL 74 - 109 UREA NITROGEN 16 18 mg/dL 7 - 25 CREATININE 1.0 1.0 mg/dL 0.6 - 1.3 SODIUM 137 141 mmol/L 136 - 145 POTASSIUM 4.3 5.0 mmol/L 3.5 - 5.1 CHLORIDE 102 103 mmol/L 98 - 107 CO2 30 32 H mmol/L 21 - 31 CALCIUM 10.4 H 10.5 H mg/dL 8.6 - 10.3 PROTEIN,TOTAL 8.0 7.4 g/dl 6.4 - 8.9 ALBUMIN 4.6 4.2 g/dL 3.5 - 5.7 TOT. BILIRUBIN 0.7 0.7 mg/dL 0.3 - 1.0 ALKALINE PHOSPH 57 53 U/L 34 - 104 SGOT(AST) 14 14 U/L 13 - 39 SGPT(ALT) 13 13 U/L 7 - 52 EGFR 77 78 - Interpretation for EGFR: Estimated Glomerular Filtration Rate (eGFR) calculated using the 202 Chronic Kidney Disease-Epidemiology (CKD-EPI) Collaboration creatinine equation; units of measure are mL/min/1.73 m2. Results are only valid for adults (=18 years) whose serum creatinine is in a steady state. eGFR calculations are not valid for patients with acute kidney injury and for patients on dialysis. Creatinine-based estimates of kidney function may also be inaccurate in patients with reduced creatinine generation due to decreased muscle mass (e.g., malnutrition, severe hypoalbuminemia, sarcopenia, chronic neuromuscular disease, amputations, severe heart failure or liver disease) and in patients with increased creatinine generation due to increased muscle mass (e.g., muscle builders, anabolic steroids) or increased dietary intake. As drug clearance is proportional to total GFR and not GFR indexed to body surface area (BSA), in individuals with a BSA substantially different than 1.73 m2, drug dosing should be based the reported eGFR value de-indexed from BSA by multiplying by the individual's BSA and dividing by 1.73. CKD is diagnosed based on abnormalities of kidney structure or function, present for >3 months, with implications for health and disease. CKD is classified and staged based on cause, eGFR and albuminuria (quantified as urine albumin to creatinine ratio). An eGFR >60 mL/min/1.73 m2 in the absence of increased urine albumin excretion or structural abnormalities does not represent CKD. eGFR (mL/min/1.73 m2) CKD stage Interpretation >=90 G1 Normal 60-89 G2 Mild decrease 45-59 G3A Mild to moderate decrease 30-44 G3B Moderate to severe decrease 15-29 G4 Severe decrease <15 G5 Kidney failure Prior to 10/11/21 eGFR Reference Range >=60 - calculated using the MDRD calculation; after 10/11/21 see test comment for eGFR Reference Range information - calculated using the CKD-EPI creatinine equation (2020). CPRS Trending charts pre-10/11/21 should not be compared to post-10/11/21. The lab listed above is stable and as expected. ~~~~~~~~~~~~~~~~~~~~~~~~~~~~~ ~~~~~~~~~~~~~~~~~~~~~~~~~~~~~ ~~~~~~~~~~~~~ A complete blood count test measures several components and features of your blood, including: - Red blood cells, which carry oxygen. - Platelets, which help with blood clotting. - White blood cells, which fight infection. - Hemoglobin, the oxygen-carrying protein in red blood cells. - Hematocrit, the proportion of red blood cells to the fluid Component, or plasma, in your blood. CBC RESULTS: CBC WITH DIFFERENTIAL; BLOOD Alis. Date: 02/06/25 12:10 08/13/24 09:19 Test Name Result Result Units Range WBC 12.90 H 12.97 H K/mcL 4.0 - 11.0 RBC 5.50 5.22 M/mcL 4.1 - 5.8 HGB 16.2 15.7 g/dl 12.1 - 17.2 HCT 50.4 48.0 % 38 - 51 MCV 91.6 92.0 fl 80 - 100 MCH 29.5 30.1 pg 26 - 32 MCHC 32.1 32.7 g/dl 32.0 - 37.5 PLATELET 259 235 K/mcL 130 - 400 MPV 9.1 9.2 fL 8.9 - 12.7 LYMPH, ABSOLUTE 2.69 2.84 K/mcL 1.0 - 3.0 NEUTROPHIL, ABS 8.46 H 8.21 H K/mcL 2.0 - 7.0 EOSINO, ABSOLUT 0.53 H 0.61 H K/mcL 0.0 - 0.5 BASO, ABSOLUTE 0.09 0.08 K/mcL 0.0 - 0.2 LYMPH % AUTOMAT 20.9 21.9 % - MONOS % AUTOMAT 8.5 9.1 % - MONOS, ABSOLUTE 1.10 H 1.18 H K/mcL 0.3 - 0.9 NEUTRO % AUTOMA 65.6 63.3 % - EOSIN % AUTOMAT 4.1 4.7 % - BASO % AUTOMATE 0.7 0.6 % - RDW-CV 12.8 12.7 % 11.5 - 14.5 IMMATURE GRANUL 0.2 0.4 % 0.0 - 0.5 NRBC% 0.0 0.0 % 0 - 0.2 NRBC# <0.01 <0.01 K/mcL 0 - 0.012 The lab listed above is stable and as expected. ~~~~~~~~~~~~~~~~~~~~~~~~~~~~~ ~~~~~~~~~~~~~~~~~~~~~~~~~~~~~ ~~~~~~~~~~~~~ Please contact me or my nurse if you have any questions or concerns. Sincerely, Dr. Annabella GARCIA DO Attending Physician, [facility] ANNABELLA GARCIA DO [facility] Feb 06, 2025 11:27 AM PRIMARY CARE OUTPA TIENT NOTE: LOCAL TITLE: PRIMARY CARE STANDARD TITLE: PRIMARY CARE OUTPATIENT NOTE DATE OF NOTE: FEB 06, 2025@11:27 ENTRY DATE: FEB 06, 2025@11:27:46 AUTHOR: ANNABELLA GARCIA DO EXP COSIGNER: URGENCY: STATUS: COMPLETED CC:Follow up HPI: 79 yo here for 6 mo follow up. Since last appt, he notes some night sweats. This has occurred intermittently over the last year. He also notes some R knee pain. He contineus to golf this season. He notes some medial R knee pain. He had R knee meniscus repair at [facility] 5-10 y ago. Last imaging 2019. Pt more active in summer and has been golfing, mowing lawn/doing yard work so may have exacerbated his chronic knee issues. He cont to use tramadol. In winter , less frequent, but when playing golf, 2-3x/week. Pt c/o skilled nursing nasal congetsion. He takes 2-3 benadryl year round for several years. In past he also took claritin from [place]. He has h/o nasal cautery for nose bleed in 2007. He does not see local drs regularly ROS: Gen: No f/c CV: NO CP, Palpitations Pulm: No SOB, Cough, wheeze GI:No N/V/D/C, no Gerd, No black/bloody bms : No dysuria, No hematuria MSK:No new back pain Neuro:No DC, no weakness PMH: HTN hyperlipidemia prostate ca s/p seed implant 2003-urologist f/u allergies Rt. nephrectomy s/p trauma at [email or web address] war, s/p transfusion Diverticulitis Social HX: Currently lives with of 26 y 2 boys in [place], and step kids live nearby Tobacco: quit 10 y ago Alcohol use: Beer or two in the summer when golfing MJ/Drug Use: Denies hx:[employer] , [place], agent orange Family HX: N/c Allergies: Statin intolerant- myalgias PE: VSD - Last Set Vitals Date Vital Measurement Qualifiers 02/06/2025 11:23 Temp F (C) 97.2 (36.2) Pulse 61 Respir 16 BP 124/78 Wt lbs (kg)[BMI] 254.85 (115.60)[36*]Actual, Standing Weight Pain 0 POx (L/Min)(%) 97 08/13/2024 10:09 Ht in (cm) 71 (180.34) Estimated Gen: NAD, A and O x 3, cooperative with interview and exam HEENT:NC/AT, MMM, TMS with serous fluid, no erythema, mod pnd in posterior pharynx CV: RRR, S1S2 Pulm: CTAB,NO wheezing, rhonchi or rales, transmitted noises ABD:Soft, Nt/ND, no palpable organomegaly EXT: No [...] Labs reviewed and d/w pt ========= A/P: -HTN.Controlled.Cont lisinopril 20mg/d and atenolol 50mg/d R medial knee pain- Check xrays. Conider PT/ PMR if worse PND/allerges- advised to cut back benadryl use due to increased risks of anticholinergic SE. Trial zyrtec and azelastine NIght sweats- may be secondary to benadryl, trazodone and tramadol. Gievn h/o prosate ca, will cont to check labs. -HYPERLIPIDEMIA. not tolerated statins. Consider Phaser testing. [...] -Diverticulitis- Cont dietary changes. Rpt scope around 2 DR Duenas/Dave -CRC last in 2020- due rpt in 2025 -Toxic environmental exposure- stable. no new c/o HM- Pt declined RSV today If well, rtc 6m for routine f/u, and prn Total time spent face to face and in chart review and documentation for this visit:35m P-MEDICATION RECONCILIATION: Review of medications with the patient at the time of this encounter included: Patient local and remote allergies, active and pending prescriptions dispensed from this [place] (local) and dispensed from another [place] or [facility] facility (remote) as well as local inpatient [...] ONCE DAILY ACTIVE Indication: FOR BLOOD PRESSURE AZELASTINE 137MCG/SPRAY 200D NASAL INHL INHALE 1 SPRAY IN PENDING EACH NOSTRIL ONCE DAILY NEEDED Indication: FOR ALLERGIC RHINITIS CETIRIZINE HCL 10MG TAB TAKE ONE TABLET BY MOUTH ONCE PENDING DAILY Indication: FOR ALLERGIES LISINOPRIL 20MG TAB TAKE ONE TABLET BY MOUTH ONCE DAILY ACTIVE Indication: FOR BLOOD PRESSURE MELOXICAM 15MG TAB TAKE ONE TABLET BY MOUTH ONCE DAILY - ACTIVE TAKE WITH FOOD Indication: FOR PAIN AND INFLAMMATION TRAZODONE HCL 100MG TAB TAKE ONE TABLET BY MOUTH AT ACTIVE BEDTIME Indication: FOR SLEEP /es/ ANNABELLA Y JOSE DO Attending PhysicianAng[place] Signed: 02/06/2025 12:07 JOSE,ANNABELLA Escobar DO [facility] Feb 06, 2025 11:16 AM PRIMARY CARE NURSI NOTE: LOCAL TITLE: PRIMARY CARE PREVENTIVE HEALTH STANDARD TITLE: PRIMARY CARE NURSING NOTE DATE OF NOTE: FEB 06, 2025@11:16 ENTRY DATE: FEB 06, 2025@11:16:58 AUTHOR: HAO VARELA EXP COSIGNER: URGENCY: STATUS: COMPLETED S: Vet in clinic for Primary Care Appointment. O: V/S entered. Reminders completed in pt chart, MD aware. P: To see the Provider. Homelessness/Food Insecurity Screen: In the past 2 months, have you been living in stable housing that you own, rent, or stay in as part of a household? Yes - Living in stable housing. Are you worried or concerned that in the next 2 months you may NOT have stable housing that you own, rent, or stay in as part of a household? No - Not worried about housing near future [facility] reports the following: Within the past 12 months, you worried whether your food would run out before you got money to buy more. Never true Within the past 12 months, the food you bought just didn't last and you didn't have money to get more. Never true RHS Screen: RHS Screen Session Format: Face to Face Environmental Check Upon inquiry, the individual reports that the environment is safe to proceed. Informed Consent to Screen and Document The individual does NOT consent to proceed with screening. N-Pain Screen: Are you currently experiencing pain? No: Pain Score: 0 Alcohol Use Screen (AUDIT-C): Alcohol Screen: SCREEN FOR ALCOHOL (AUDIT-C) An alcohol screening test (AUDIT-C) was negative (score=2). 1. How often did you have a drink containing alcohol in the past year? Consider a drink to be a 12 ounce can or bottle of regular beer, 8 ounces of malt liquor, a 5 ounce glass of table wine, or a 1.5 ounce shot of liquor (like scotch, gin, or vodka). Two to four times a month 2. How many drinks containing alcohol did you have on a typical day when you were drinking in the past year? One or two drinks 3. How often did you have six or more drinks on one occasion in the past year? Never Depression Screening: Perform PHQ-2 A PHQ-2 screen was performed. The score was 0 which is a negative screen for depression. Over the past two weeks, how often have you been bothered by the following problems? 1. Little interest or pleasure in doing things Not at all 2. Feeling down, depressed, or hopeless Not at all Suicide Screen: C-SSRS Screening [place] Suicide Severity Rating Scale (C-SSRS) screener 1. Over the past month, have you wished you were or wished you could go to sleep and not wake up? No 2. Over the past month, have you had any actual thoughts of killing yourself? No 3. Over the past month, have you been thinking about how you might do this? Response not required due to responses to other questions. 4. Over the past month, have you had these thoughts and had some intention of acting on them? Response not required due to responses to other questions. 5. Over the past month, have you started to work out or worked out the details of how to kill yourself? Response not required due to responses to other questions. 6. If yes, at any time in the past month did you intend to carry out this plan? Response not required due to responses to other questions. 7. In your lifetime, have you ever done anything, started to do anything, or prepared to do anything to end your life (for example, collected pills, obtained a gun, gave away valuables, went to the roof but didn't jump)? No 8. If YES, was this within the past 3 months? Response not required due to responses to other questions. N-Education Assessment: Patients preferred language for discussing healthcare: Language: Irish BARRIERS TO LEARNING Patient has no barriers to learning recorded. READINESS TO LEARN ASSESSMENT Readiness good Level of Understanding: Good Teaching Outcomes: Patient education was provided to: Comment: Education provided to patient PAVE Foot Check: Patient indicates foot exam (including monofilament test for sensation) was performed in the past year in the private sector: Date: March, ? Exact date is unknown Result: Normal N-HTN Assess Elevated BP>=140/90: The patient's most recent Blood Pressure recorded in the computer exceeds the recommended maximum of 139/89. Most recent Blood Pressure: 148/74 (08/13/2024 10:09) Enter In-Clinic Blood Pressure. Blood Pressure: 124/78 Automatic (if BP > 139/89 on first check, recheck with Manual) /tressa/ HAO VARELA Licensed Practical Nurse Signed: 02/06/2025 11:22 HAO VARELA [facility]
--- OUTSIDE RECORDS SUMMARY | 2025-02-24 04:29 | XMS_ITS | Continuity of Care Document ---
Author Name [facility] Organization [facility] Care Team Providers Care Journeyman Painter Name Role Phone [facility] Unavailable Unavailable Problems Combined list of problems from Department of Defense and Veterans Affairs facilities. It does not include entries that were removed or entered in error. Problem Status Onset Date Problem Type Date of Resolution Comments Source Exposure to Potentially Hazardous Substance (SCT 440460934476781) Active Condition [facility] Glaucoma suspect (SNOMED CT 231136775) Active Condition [facility] High cholesterol (SNOMED CT 26812510) Active Condition [facility] History of Malignant Neoplasm of Prostate (SCT 532905979) Active Condition [facility] History of partial nephrectomy Active Condition [facility] HTN - Hypertension (SCT 64946975) Active Condition [facility] Nephrectomy * (ICD-9-CM V15.2/593.9) Active Condition [facility] Pain of Right Knee Region (SCT 914784620031708) Active Condition [facility] Allergies * (ICD-9-CM 995.3) Inactive Condition 08/13/2024 [facility] 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) Inactive Condition 08/13/2024 [facility] Fitting and Adjustment of Hearing Aid (ICD-9-CM V53.2) Inactive Condition 08/13/2024 [facility] HTN * (ICD-9-CM 401.9) Inactive Condition 08/13/2024 [facility] Hypercalcemia * (ICD-9-CM 275.42) Inactive Condition 08/13/2024 [facility] Hyperopia (SNOMED CT 06157159) Inactive Condition 08/13/2024 [facility] Knee: arthralgia * (ICD-9-CM 719.46) Inactive Condition 08/13/2024 [facility] Presbyopia (SNOMED CT 78717139) Inactive Condition 08/13/2024 [facility] Prostate CA (ICD-9-CM 185.) Inactive Condition 08/13/2024 [facility] Rotator cuff syndrome Inactive Condition 08/13/2024 [facility] Senorineural Loss Combined Types Inactive Condition 08/13/2024 [facility] Shoulder pain (SNOMED CT 56206376) Inactive Condition 08/13/2024 [facility] Tinnitus Nos Inactive Condition 08/13/2024 [facility] Diagnosis: ICD-10-CM I10 Essential (primary) hypertension Active Diagnosis [facility] Diagnosis: ICD-10-CM Z46.1 Encounter for fitting and adjustment of hearing aid Active Diagnosis [facility] Diagnosis: ICD-10-CM Z13.5 Encounter for screening for eye and ear disorders Active Diagnosis [facility] Diagnosis: ICD-10-CM M54.50 Low back pain, unspecified Active Diagnosis [facility] Diagnosis: ICD-10-CM Z71.9 Counseling, unspecified Active Diagnosis [facility] Medications Combined list of outpatient medications from Department of Defense and [facility] facilities.Medications provided include 1) outpatient medications from the last 15 months, and 2) patient-reported medications. Medication Details Route Status Patient Instructions Prescription Expires Prescription Number Last Dispense Date Ordering Provider Order Date Order Qty Source ATENOLOL 50MG TAB TAKE ONE TABLET BY MOUTH ONCE DAILY FOR BLOOD PRESSURE ORAL DISCONT INUED 08/18/2024 [id number] SIDLEIF KINGSLEYZ IA Y DO 2023 90 [facility] ATENOLOL 50MG TAB TAKE ONE TABLET BY MOUTH ONCE DAILY FOR BLOOD PRESSURE ORAL 02/13/2025 [id number] 5 SIDIQ,MOJGAN IA Y DO 2023 90 [facility] AZELASTINE HCL 137MCG/SPRA Y INHL,NASAL, 30ML INHALE 1 SPRAY IN EACH NOSTRIL ONCE DAILY NEEDED FOR ALLERGIC RHINITIS NASAL ACTIVE 02/07/2026 [id number] 5 SIDSANCHOMOJGAN IA Y DO 2024 1 [facility] CETIRIZINE HCL 10MG TAB TAKE ONE TABLET BY MOUTH ONCE DAILY FOR ALLERGIE S ### ORAL ACTIVE 02/07/2026 [id number] SIDIQ,MOJGAN IA Y DO 2024 30 [facility] LISINOPRIL 20MG TAB TAKE ONE TABLET BY MOUTH ONCE DAILY FOR BLOOD PRESSURE ORAL ACTIVE 01/23/2026 [id number] 5 SIDIQ,MOJGAN IA Y DO 2024 90 [facility] LISINOPRIL 20MG TAB TAKE ONE TABLET BY MOUTH ONCE DAILY FOR BLOOD PRESSURE ORAL DISCONT INUED 02/13/2025 [id number] 5 SIDIQ,MOJGAN IA Y DO 2023 90 [facility] LISINOPRIL 20MG TAB TAKE ONE TABLET BY MOUTH ONCE DAILY FOR BLOOD PRESSURE DOSE INCREASE ORAL DISCONT INUED 03/09/2024 [id number] 4 SIDIQ,MOJGAN IA Y DO 2022 90 [facility] MELOXICAM 15MG TAB TAKE ONE TABLET BY MOUTH ONCE DAILY FOR PAIN AND INFLAMMA TION - TAKE WITH FOOD ORAL DISCONT INUED 03/28/2024 [id number] 4 SIDIQ,MOJGAN IA Y DO 2022 90 [facility] MELOXICAM 15MG TAB TAKE ONE TABLET BY MOUTH ONCE DAILY FOR PAIN AND INFLAMMA TION - TAKE WITH FOOD ORAL 02/13/2025 [id number] 5 SIDIQ,MOJGAN IA Y DO 2023 90 [facility] TRAMADOL HCL 50MG TAB TAKE 1 TABLET BY MOUTH FOUR TIMES A DAY NEEDED FOR PAIN ORAL 08/15/2024 [id number] 4 SIDIQ,MOJGAN IA Y DO 2023 60 [facility] TRAZODONE HCL 100MG TAB TAKE ONE TABLET BY MOUTH AT BEDTIME FOR SLEEP *DOSE INCREASE * ORAL DISCONT INUED 03/28/2024 [id number] SIDIQ,MOJGAN IA Y DO 2022 90 [facility] TRAZODONE HCL 100MG TAB TAKE ONE TABLET BY MOUTH AT BEDTIME FOR SLEEP ORAL 02/13/2025 [id number] 5 SIDIQ,MOJGAN IA Y DO 2023 90 [facility] Allergies, Adverse Reactions, Alerts Combined list of allergies from Department of Defense and Veterans Affairs facilities. It does not include entries that were removed or entered in error. Substance Category Reaction Severity Reaction type Status Date Reported Comments Source ATORVASTATIN Propensity to adverse reactions to drug (finding) Muscle pain active 8 [facility] HCTZ HYDROCHLOROTHI AZIDE Propensity to adverse reactions to drug (finding) Raised serum calcium level active 2 [facility] SIMVASTATIN Propensity to adverse reactions to drug (finding) Muscle pain active 8 [facility] Immunizations Combined list of available immunizations from the Department of [facility] and Veterans Affairs facilities. Immunization Series Date Given Administered By Site Reaction Lot Number CVX Code Drug Tea Leaf Reader Status Comments Source COVID-19 ([employer]), MRNA, LNP-S, PF, EDOUARD-SUCROSE, 30 MCG/0.3 ML (AGES 12+ YEARS) 2024 LIZABETH RILEY LEFT DELTO ID [id number] 309 complet ed [facility] INFLUENZA, HIGH-DOSE, TRIVALENT, PF 2024 LIZABETH RILEY RIGHT DELTO ID [id number] 135 complet ed [facility] ZOSTER RECOMBINANT 2 2022 LIZABETH RILEY LEFT DELTO ID [id number] 187 complet ed [facility] ZOSTER RECOMBINANT 1 2021 187 complet ed [facility] COVID-19 ([employer]), MRNA, LNP-S, PF, 30 MCG/0.3 ML DOSE 1 2020 208 complet ed HISTORICA L INFORMATI ON - FROM OTHER REGISTRY, [facility] INFLUENZA VACCINE, QUADRIVALENT, ADJUVANTED 1 2020 205 complet ed HISTORICA L INFORMATI ON - FROM OTHER REGISTRY, [facility] INFLUENZA, UNSPECIFIED FORMULATION 2020 88 complet ed [facility] COVID-19 ([employer]), MRNA, LNP-S, PF, 30 MCG/0.3 ML DOSE 2 2020 208 complet ed PFR; [id number]; 1 [facility] COVID-19 (P[employer]ZER), MRNA, LNP-S, PF, 30 MCG/0.3 ML DOSE 1 2020 208 complet ed PFR; [id number]; 1 [facility] INFLUENZA, TRIVALENT, ADJUVANTED 2018 168 complet ed [id number] [facility] INFLUENZA, TRIVALENT, ADJUVANTED 2017 168 complet ed [employer] [id number] Exp: 9 [facility] INFLUENZA, HIGH DOSE SEASONAL 2016 135 complet ed [employer] [id number] Exp: 8 [facility] TDAP 2016 115 complet ed [facility] PNEUMOCOCCAL CONJUGATE PCV 13 2015 133 complet ed [facility] INFLUENZA, UNSPECIFIED FORMULATION 2014 88 complet ed [employer]/ [id number] [facility] INFLUENZA (HISTORICAL) 2013 88 complet ed [id number]/[id number] [facility] INFLUENZA (HISTORICAL) 2013 88 complet ed [facility] FLU,3 YRS (HISTORICAL) 2012 88 complet ed [id number]/ [facility] FLU,3 YRS (HISTORICAL) 2011 88 complet ed [facility] PNEUMOCOCCAL, UNSPECIFIED FORMULATION 2011 109 complet ed [id number] [facility] INFLUENZA, UNSPECIFIED FORMULATION 2009 88 complet ed [id number] [facility] NOVEL INFLUENZA-H1N 1-09, ALL FORMULATIONS 2009 128 complet ed [employer] [facility] FLU,3 YRS (HISTORICAL) 2008 88 complet ed [id number] [facility] FLU,3 YRS (HISTORICAL) 2006 88 complet ed [id number] [facility] TD(ADULT) UNSPECIFIED FORMULATION 2006 139 complet ed [id number] [facility] Results Combined list of recent chemistry, hematology and other laboratory results from Department of Defense and Veterans Affairs, ranging from 15 months to all on record, depending upon the facility. Order Name Results Value Reference Range Date Interpretation Specimen Comments Source TSH THYROTROPIN [UNITS/VOLU ME] IN SERUM OR PLASMA 1.232 u[IU]/mL 0.45 - 5.33 02/06 Specimen Type: BLOOD No comment entered. Ordering Provider: ADELAIDA GARCIA DO Report Released Date/Time: Feb 06, 2025 10:31 AM Reporting Lab: [address] Performing Lab: [place] [id number] MICROALBU MIN URINE PANEL,RAN DOM CREATININE [MASS/VOLUM E] IN URINE 68 mg/dL 02/06 Specimen Type: URINE,RANDO M Comment: R-Unable to calculate MALB/CREA result Ordering Provider: ADELAIDA GARCIA DO Report Released Date/Time: Feb 06, 2025 10:31 AM Reporting Lab: [place] [address] Performing Lab: [address] MICROALBU MIN URINE PANEL,RAN DOM MICROALBUMI N [MASS/VOLUM E] IN URINE <0.7mg/d L 02/06 Specimen Type: URINE,DUANEO M Comment: R-Unable to calculate MALB/CREA result Ordering Provider: ADELAIDA GARCIA DO Report Released Date/Time: Feb 06, 2025 10:31 AM Reporting Lab: [address] Performing Lab: [address] MICROALBU MIN URINE PANEL,RAN DOM MICROALBUMI N/CREATININ E [MASS RATIO] IN URINE commentm g/g 02/06 Specimen Type: URINE,DUANEO M Comment: R-Unable to calculate MALB/CREA result Ordering Provider: ADELAIDA GARCIA DO Report Released Date/Time: Feb 06, 2025 10:31 AM Reporting Lab: [address] Performing Lab: [address] HGB A1C (with eAG) HEMOGLOBIN A1C/HEMOGLO BIN.TOTAL IN BLOOD BY HPLC 6.7 4.0 - 6.0 02/06 H Specimen Type: BLOOD Comment: ~HGB A1C - Reference Range prior to 08/28/96: 3-6.1% Ordering Provider: ADELAIDA GARCIA DO Report Released Date/Time: Feb 06, 2025 10:31 AM Reporting Lab: [facility] [address] [facility] [address] Performing Lab: [facility] [address] [facility] [address] [facility] HGB A1C (with eAG) GLUCOSE MEAN VALUE [MASS/VOLUM E] IN BLOOD ESTIMATED FROM GLYCATED HEMOGLOBIN 146 mg/dL 02/06 Specimen Type: BLOOD Comment: ~HGB A1C - Reference Range prior to 08/28/96: 3-6.1% Ordering Provider: ADELAIDA GARCIA DO Report Released Date/Time: Feb 06, 2025 10:31 AM Reporting Lab: [address] [facility] [address] Performing Lab: [address] [facility] [address] [facility] PSA PROSTATE SPECIFIC AG [MASS/VOLUM E] IN SERUM OR PLASMA <0.008ng /mL <4.000 - 4.000 02/06 Specimen Type: BLOOD No comment entered. Ordering Provider: ADELAIDA GARCIA DO Report Released Date/Time: Feb 06, 2025 11:53 AM Reporting Lab: [address] [address] Performing Lab: [place] [phone] [facility] URINALYSI S COLOR OF URINE YELLOW 02/06 Specimen Type: URINE,RANDO M Comment: MICROSCOPIC EXAM NOT INDICATED Ordering Provider: ADELAIDA GARCIA DO Report Released Date/Time: Feb 06, 2025 10:31 AM Reporting Lab: [facility] [address] [facility] [address] Performing Lab: [facility] [address] [facility] [address] [facility] URINALYSI S SPECIFIC GRAVITY OF URINE 1.013 1.003 - 1.035 02/06 Specimen Type: URINE,RANDO M Comment: MICROSCOPIC EXAM NOT INDICATED Ordering Provider: ADELAIDA GARCIA DO Report Released Date/Time: Feb 06, 2025 10:31 AM Reporting Lab: [facility] [address] [facility] [address] Performing Lab: [facility] [address] [place] [address] [facility] URINALYSI S UROBILINOGE N [UNITS/VOLU ME] IN URINE BY TEST STRIP 0.2 {Magen 'U}/dL 0.2 - 2.0 02/06 Specimen Type: URINE,RANDO M Comment: MICROSCOPIC EXAM NOT INDICATED Ordering Provider: ADELAIDA GARCIA DO Report Released Date/Time: Feb 06, 2025 10:31 AM Reporting Lab: [facility] [address] [facility] [address] Performing Lab: [facility] [address] [facility] [address] [facility] URINALYSI S BILIRUBIN.T OTAL [PRESENCE] IN URINE BY TEST STRIP NEGATIVE 02/06 Specimen Type: URINE,RANDO M Comment: MICROSCOPIC EXAM NOT INDICATED Ordering Provider: ADELAIDA GARCIA DO Report Released Date/Time: Feb 06, 2025 10:31 AM Reporting Lab: [facility] [address] [facility] [address] Performing Lab: [facility] [address] [place] [address] [facility] URINALYSI S KETONES [PRESENCE] IN URINE NEGATIVE 02/06 Specimen Type: URINE,RANDO M Comment: MICROSCOPIC EXAM NOT INDICATED Ordering Provider: ADELAIDA GARCIA DO Report Released Date/Time: Feb 06, 2025 10:31 AM Reporting Lab: [facility] [address] [facility] [address] Performing Lab: [facility] [address] [place] [address] [facility] URINALYSI S GLUCOSE [MASS/VOLUM E] IN URINE BY TEST STRIP NEGATIVE 02/06 Specimen Type: URINE,RANDO M Comment: MICROSCOPIC EXAM NOT INDICATED Ordering Provider: ADELAIDA GARCIA DO Report Released Date/Time: Feb 06, 2025 10:31 AM Reporting Lab: [facility] [address] [facility] [address] Performing Lab: [facility] [address] [facility] [address] [facility] URINALYSI S PROTEIN [PRESENCE] IN URINE BY TEST STRIP NEGATIVE 02/06 Specimen Type: URINE,RANDO M Comment: MICROSCOPIC EXAM NOT INDICATED Ordering Provider: ADELAIDA GARCIA DO Report Released Date/Time: Feb 06, 2025 10:31 AM Reporting Lab: [facility] [address] [facility] [address] Performing Lab: [facility] [address] [facility] [address] [facility] URINALYSI S PH OF URINE BY TEST STRIP 5.5 5.0 - 9.0 02/06 Specimen Type: URINE,RANDO M Comment: MICROSCOPIC EXAM NOT INDICATED Ordering Provider: ADELAIDA GARCIA DO Report Released Date/Time: Feb 06, 2025 10:31 AM Reporting Lab: [facility] [address] [facility] [address] Performing Lab: [facility] [address] [facility] [address] [facility] URINALYSI S HEMOGLOBIN [PRESENCE] IN URINE BY TEST STRIP NEGATIVE 02/06 Specimen Type: URINE,RANDO M Comment: MICROSCOPIC EXAM NOT INDICATED Ordering Provider: ADELAIDA GARCIA DO Report Released Date/Time: Feb 06, 2025 10:31 AM Reporting Lab: [facility] [address] [facility] [address] Performing Lab: [facility] [address] [facility] [address] [facility] URINALYSI S NITRITE [PRESENCE] IN URINE BY TEST STRIP NEGATIVE 02/06 Specimen Type: URINE,RANDO M Comment: MICROSCOPIC EXAM NOT INDICATED Ordering Provider: ADELAIDA GARCIA DO Report Released Date/Time: Feb 06, 2025 10:31 AM Reporting Lab: [facility] [address] [place] [address] Performing Lab: [place] [facility] [address] [place] [address] [facility] URINALYSI S LEUKOCYTE ESTERASE [PRESENCE] IN URINE BY TEST STRIP NEGATIVE 02/06 Specimen Type: URINE,RANDO M Comment: MICROSCOPIC EXAM NOT INDICATED Ordering Provider: ADELAIDA GARCIA DO Report Released Date/Time: Feb 06, 2025 10:31 AM Reporting Lab: [facility] [address] [place] [address] Performing Lab: [facility] [address] [place] [address] [facility] URINALYSI S CLARITY OF URINE CLEAR 02/06 Specimen Type: URINE,RANDO M Comment: MICROSCOPIC EXAM NOT INDICATED Ordering Provider: ADELAIDA GARCIA DO Report Released Date/Time: Feb 06, 2025 10:31 AM Reporting Lab: [facility] [address] [place] [address] Performing Lab: [facility] [address] [place] [address] [facility] COMPREHEN SIVE METABOLIC PANEL CREATININE [MASS/VOLUM E] IN SERUM OR PLASMA 1.0 mg/dL 0.6 - 1.3 02/06 Specimen Type: BLOOD No comment entered. Ordering Provider: ADELAIDA GARCIA DO Report Released Date/Time: Feb 06, 2025 10:31 AM Reporting Lab: [facility] [address] [place] [address] Performing Lab: [facility] [address] [place] [address] [facility] COMPREHEN SIVE METABOLIC PANEL UREA NITROGEN [MASS/VOLUM E] IN SERUM OR PLASMA 16 mg/dL 7 - 25 02/06 Specimen Type: BLOOD No comment entered. Ordering Provider: ADELAIDA GARCIA DO Report Released Date/Time: Feb 06, 2025 10:31 AM Reporting Lab: [facility] [address] [facility] [address] Performing Lab: [facility] [address] [facility] [address] [facility] COMPREHEN SIVE METABOLIC PANEL GLUCOSE [MASS/VOLUM E] IN SERUM OR PLASMA 129 mg/dL 74 - 109 02/06 H Specimen Type: BLOOD No comment entered. Ordering Provider: ADELAIDA GARCIA DO Report Released Date/Time: Feb 06, 2025 10:31 AM Reporting Lab: [facility] [address] [facility] [address] Performing Lab: [facility] [address] [facility] [address] [facility] COMPREHEN SIVE METABOLIC PANEL SODIUM [MOLES/VOLU ME] IN SERUM OR PLASMA 137 mmol/L 136 - 145 02/06 Specimen Type: BLOOD No comment entered. Ordering Provider: ADELAIDA GARCIA DO Report Released Date/Time: Feb 06, 2025 10:31 AM Reporting Lab: [facility] [address] [facility] [address] Performing Lab: [facility] [address] [facility] [address] [facility] COMPREHEN SIVE METABOLIC PANEL POTASSIUM [MOLES/VOLU ME] IN SERUM OR PLASMA 4.3 mmol/L 3.5 - 5.1 02/06 Specimen Type: BLOOD No comment entered. Ordering Provider: ADELAIDA GARCIA DO Report Released Date/Time: Feb 06, 2025 10:31 AM Reporting Lab: [facility] [address] [facility] [address] Performing Lab: [facility] [address] [place] [address] [facility] COMPREHEN SIVE METABOLIC PANEL CHLORIDE [MOLES/VOLU ME] IN SERUM OR PLASMA 102 mmol/L 98 - 107 02/06 Specimen Type: BLOOD No comment entered. Ordering Provider: ADELAIDA GARCIA DO Report Released Date/Time: Feb 06, 2025 10:31 AM Reporting Lab: [facility] [address] [facility] [address] Performing Lab: [facility] [address] [facility] [address] [facility] COMPREHEN SIVE METABOLIC PANEL CARBON DIOXIDE, TOTAL [MOLES/VOLU ME] IN SERUM OR PLASMA 30 mmol/L 02/06 Specimen Type: BLOOD No comment entered. Ordering Provider: ADELAIDA GARCIA DO Report Released Date/Time: Feb 06, 2025 10:31 AM Reporting Lab: [facility] [address] [facility] [address] Performing Lab: [facility] [address] [facility] [address] [facility] COMPREHEN SIVE METABOLIC PANEL CALCIUM [MASS/VOLUM E] IN SERUM OR PLASMA 10.4 mg/dL 8.6 - 10.3 02/06 H Specimen Type: BLOOD No comment entered. Ordering Provider: ADELAIDA GARCIA DO Report Released Date/Time: Feb 06, 2025 10:31 AM Reporting Lab: [facility] [address] [facility] [address] Performing Lab: [facility] [address] [facility] [address] [facility] COMPREHEN SIVE METABOLIC PANEL PROTEIN [MASS/VOLUM E] IN SERUM OR PLASMA 8.0 g/dL 6.4 - 8.9 02/06 Specimen Type: BLOOD No comment entered. Ordering Provider: ADELAIDA GARCIA DO Report Released Date/Time: Feb 06, 2025 10:31 AM Reporting Lab: [facility] [address] [facility] [address] Performing Lab: [facility] [address] [facility] [address] [facility] COMPREHEN SIVE METABOLIC PANEL ALBUMIN [MASS/VOLUM E] IN SERUM OR PLASMA 4.6 g/dL 3.5 - 5.7 02/06 Specimen Type: BLOOD No comment entered. Ordering Provider: ADELADIA GARCIA DO Report Released Date/Time: Feb 06, 2025 10:31 AM Reporting Lab: [facility] [address] [facility] [address] Performing Lab: [facility] [address] [facility] [address] [facility] COMPREHEN SIVE METABOLIC PANEL BILIRUBIN.T OTAL [MASS/VOLUM E] IN SERUM OR PLASMA 0.7 mg/dL 0.3 - 1.0 02/06 Specimen Type: BLOOD No comment entered. Ordering Provider: ADELAIDA GARCIA DO Report Released Date/Time: Feb 06, 2025 10:31 AM Reporting Lab: [facility] [address] [facility] [address] Performing Lab: [facility] [address] [facility] [address] [facility] COMPREHEN SIVE METABOLIC PANEL ALKALINE PHOSPHATASE [ENZYMATIC ACTIVITY/VO LUME] IN SERUM OR PLASMA 57 U/L 34 - 104 02/06 Specimen Type: BLOOD No comment entered. Ordering Provider: ADELAIDA GARCIA DO Report Released Date/Time: Feb 06, 2025 10:31 AM Reporting Lab: [facility] [address] [facility] [address] Performing Lab: [facility] [address] [facility] [address] [facility] COMPREHEN SIVE METABOLIC PANEL ASPARTATE AMINOTRANSF ERASE [ENZYMATIC ACTIVITY/VO LUME] IN SERUM OR PLASMA 14 U/L 13 - 39 02/06 Specimen Type: BLOOD No comment entered. Ordering Provider: ADELAIDA GARCIA DO Report Released Date/Time: Feb 06, 2025 10:31 AM Reporting Lab: [facility] [address] [facility] [address] Performing Lab: [facility] [address] [facility] [address] [facility] COMPREHEN SIVE METABOLIC PANEL ALANINE AMINOTRANSF ERASE [ENZYMATIC ACTIVITY/VO LUME] IN SERUM OR PLASMA 13 U/L 7 - 52 02/06 Specimen Type: BLOOD No comment entered. Ordering Provider: ADELAIDA GARCIA DO Report Released Date/Time: Feb 06, 2025 10:31 AM Reporting Lab: [facility] [address] [facility] [address] Performing Lab: [place] [address] [facility] [id number] [facility] COMPREHEN SIVE METABOLIC PANEL ANION GAP 3 IN SERUM OR PLASMA 5 mmol/L 4 - 12 02/06 Specimen Type: BLOOD No comment entered. Ordering Provider: ADELAIDA GARCIA DO Report Released Date/Time: Feb 06, 2025 10:31 AM Reporting Lab: [place] [address] [facility] [address] Performing Lab: [place] [address] [facility] [address] [facility] COMPREHEN SIVE METABOLIC PANEL GLOMERULAR FILTRATION RATE/1.73 SQ M.PREDICTED [VOLUME RATE/AREA] IN SERUM, PLASMA OR BLOOD BY CREATININE AND CYSTATIN C-BASED FORMULA (CKD-EPI 2020) 77 mL/min/{ 1.73_m2} 02/06 Specimen Type: BLOOD No comment entered. Ordering Provider: ADELAIDA GARCIA DO Report Released Date/Time: Feb 06, 2025 10:31 AM Reporting Lab: [place] [address] [facility] [address] Performing Lab: [address] [facility] [address] [facility] CBC WITH DIFFERENT IAL LEUKOCYTES [#/VOLUME] IN BLOOD BY AUTOMATED COUNT 12.90 10*3/uL 4.00 - 11.00 02/06 H Specimen Type: BLOOD No comment entered. Ordering Provider: ADELAIDA GARCIA DO Report Released Date/Time: Feb 06, 2025 10:31 AM Reporting Lab: [place] [address] [facility] [address] Performing Lab: [address] [facility] [address] [facility] CBC WITH DIFFERENT IAL ERYTHROCYTE S [#/VOLUME] IN BLOOD 5.50 10*6/uL 4.10 - 5.80 02/06 Specimen Type: BLOOD No comment entered. Ordering Provider: ADELAIDA GARCIA DO Report Released Date/Time: Feb 06, 2025 10:31 AM Reporting Lab: [place] [address] [facility] [address] Performing Lab: [facility] [address] [facility] [address] [facility] CBC WITH DIFFERENT IAL HEMOGLOBIN [MASS/VOLUM E] IN BLOOD 16.2 g/dL 12.1 - 17.2 02/06 Specimen Type: BLOOD No comment entered. Ordering Provider: ADELAIDA GARCIA DO Report Released Date/Time: Feb 06, 2025 10:31 AM Reporting Lab: [facility] [address] [facility] [address] Performing Lab: [facility] [address] [facility] [address] [facility] CBC WITH DIFFERENT IAL HEMATOCRIT [VOLUME FRACTION] OF BLOOD BY AUTOMATED COUNT 50.4 38.0 - 51.0 02/06 Specimen Type: BLOOD No comment entered. Ordering Provider: ADELAIDA GARCIA DO Report Released Date/Time: Feb 06, 2025 10:31 AM Reporting Lab: [facility] [address] [facility] [address] Performing Lab: [facility] [address] [facility] [address] [facility] CBC WITH DIFFERENT IAL MCV [ENTITIC VOLUME] BY AUTOMATED COUNT 91.6 fL 80.0 - 100.0 02/06 Specimen Type: BLOOD No comment entered. Ordering Provider: ADELAIDA GARCIA DO Report Released Date/Time: Feb 06, 2025 10:31 AM Reporting Lab: [facility] [address] [facility] [address] Performing Lab: [facility] [address] [facility] [address] [facility] CBC WITH DIFFERENT IAL MCH [ENTITIC MASS] BY AUTOMATED COUNT 29.5 pg 26.0 - 32.0 02/06 Specimen Type: BLOOD No comment entered. Ordering Provider: ADELAIDA GARCIA DO Report Released Date/Time: Feb 06, 2025 10:31 AM Reporting Lab: [facility] [address] [facility] [address] Performing Lab: [facility] [address] [facility] [address] [facility] CBC WITH DIFFERENT IAL MCHC [MASS/VOLUM E] BY AUTOMATED COUNT 32.1 g/dL 32.0 - 37.5 02/06 Specimen Type: BLOOD No comment entered. Ordering Provider: ADELAIDA GARCIA DO Report Released Date/Time: Feb 06, 2025 10:31 AM Reporting Lab: [place] [address] [facility] [address] Performing Lab: [facility] [address] [facility] [address] [facility] CBC WITH DIFFERENT IAL PLATELETS [#/VOLUME] IN BLOOD BY AUTOMATED COUNT 259 10*3/uL 130 - 400 02/06 Specimen Type: BLOOD No comment entered. Ordering Provider: ADELAIDA GARCIA DO Report Released Date/Time: Feb 06, 2025 10:31 AM Reporting Lab: [address] [facility] [address] Performing Lab: [address] [facility] [address] [facility] CBC WITH DIFFERENT IAL PLATELET MEAN VOLUME [ENTITIC VOLUME] IN BLOOD BY AUTOMATED COUNT 9.1 fL 8.9 - 12.7 02/06 Specimen Type: BLOOD No comment entered. Ordering Provider: ADELAIDA GARCIA DO Report Released Date/Time: Feb 06, 2025 10:31 AM Reporting Lab: [address] [facility] [address] Performing Lab: [address] [facility] [address] [facility] CBC WITH DIFFERENT IAL LYMPHOCYTES [#/VOLUME] IN BLOOD BY AUTOMATED COUNT 2.69 10*3/uL 1.00 - 3.00 02/06 Specimen Type: BLOOD No comment entered. Ordering Provider: ADELAIDA GARCIA DO Report Released Date/Time: Feb 06, 2025 10:31 AM Reporting Lab: [place] [address] [facility] [address] Performing Lab: [address] [facility] [address] [facility] CBC WITH DIFFERENT IAL MONOCYTES/1 00 LEUKOCYTES IN BLOOD BY AUTOMATED COUNT 8.5 02/06 Specimen Type: BLOOD No comment entered. Ordering Provider: ADELAIDA GARCIA DO Report Released Date/Time: Feb 06, 2025 10:31 AM Reporting Lab: [facility] [address] [facility] [address] Performing Lab: [facility] [address] [facility] [address] [facility] CBC WITH DIFFERENT IAL MONOCYTES [#/VOLUME] IN BLOOD BY AUTOMATED COUNT 1.10 10*3/uL 0.30 - 0.90 02/06 H Specimen Type: BLOOD No comment entered. Ordering Provider: ADELAIDA GARCIA DO Report Released Date/Time: Feb 06, 2025 10:31 AM Reporting Lab: [facility] [address] [facility] [address] Performing Lab: [facility] [address] [facility] [address] [facility] CBC WITH DIFFERENT IAL LYMPHOCYTES /100 LEUKOCYTES IN BLOOD BY AUTOMATED COUNT 20.9 02/06 Specimen Type: BLOOD No comment entered. Ordering Provider: ADELAIDA GARCIA DO Report Released Date/Time: Feb 06, 2025 10:31 AM Reporting Lab: [facility] [address] [facility] [address] Performing Lab: [facility] [address] [facility] [address] [facility] CBC WITH DIFFERENT IAL BASOPHILS [#/VOLUME] IN BLOOD BY AUTOMATED COUNT 0.09 10*3/uL 0.00 - 0.20 02/06 Specimen Type: BLOOD No comment entered. Ordering Provider: ADELAIDA GARCIA DO Report Released Date/Time: Feb 06, 2025 10:31 AM Reporting Lab: [facility] [address] [facility] [address] Performing Lab: [facility] [address] [facility] [address] [facility] CBC WITH DIFFERENT IAL EOSINOPHILS [#/VOLUME] IN BLOOD BY AUTOMATED COUNT 0.53 10*3/uL 0.00 - 0.50 02/06 H Specimen Type: BLOOD No comment entered. Ordering Provider: ADELAIDA GARCIA DO Report Released Date/Time: Feb 06, 2025 10:31 AM Reporting Lab: [facility] [address] [facility] [address] Performing Lab: [facility] [address] [facility] [address] [facility] CBC WITH DIFFERENT IAL NEUTROPHILS /100 LEUKOCYTES IN BLOOD BY AUTOMATED COUNT 65.6 02/06 Specimen Type: BLOOD No comment entered. Ordering Provider: ADELAIDA GARCIA DO Report Released Date/Time: Feb 06, 2025 10:31 AM Reporting Lab: [facility] [address] [facility] [address] Performing Lab: [facility] [address] [facility] [address] [facility] CBC WITH DIFFERENT IAL EOSINOPHILS /100 LEUKOCYTES IN BLOOD BY AUTOMATED COUNT 4.1 02/06 Specimen Type: BLOOD No comment entered. Ordering Provider: ADELAIDA GARCIA DO Report Released Date/Time: Feb 06, 2025 10:31 AM Reporting Lab: [facility] [address] [facility] [address] Performing Lab: [facility] [address] [facility] [address] [facility] CBC WITH DIFFERENT IAL BASOPHILS/1 00 LEUKOCYTES IN BLOOD BY AUTOMATED COUNT 0.7 02/06 Specimen Type: BLOOD No comment entered. Ordering Provider: ADELAIDA GARCIA DO Report Released Date/Time: Feb 06, 2025 10:31 AM Reporting Lab: [facility] [address] [facility] [address] Performing Lab: [facility] [address] [facility] [address] [facility] CBC WITH DIFFERENT IAL NEUTROPHILS [#/VOLUME] IN BLOOD BY AUTOMATED COUNT 8.46 10*3/uL 2.00 - 7.00 02/06 H Specimen Type: BLOOD No comment entered. Ordering Provider: ADELAIDA GARCIA DO Report Released Date/Time: Feb 06, 2025 10:31 AM Reporting Lab: [facility] [address] [facility] [address] Performing Lab: [facility] [address] [facility] [address] [facility] CBC WITH DIFFERENT IAL ERYTHROCYTE DISTRIBUTIO N WIDTH [RATIO] 12.8 11.5 - 14.5 02/06 Specimen Type: BLOOD No comment entered. Ordering Provider: ADELAIDA GARCIA DO Report Released Date/Time: Feb 06, 2025 10:31 AM Reporting Lab: [facility] [address] [facility] [address] Performing Lab: [facility] [address] [facility] [address] [facility] CBC WITH DIFFERENT IAL IMMATURE GRANULOCYTE S/100 LEUKOCYTES IN BLOOD 0.2 0.0 - 0.5 02/06 Specimen Type: BLOOD No comment entered. Ordering Provider: ADELAIDA GARCIA DO Report Released Date/Time: Feb 06, 2025 10:31 AM Reporting Lab: [facility] [address] [facility] [address] Performing Lab: [facility] [address] [facility] [address] [facility] CBC WITH DIFFERENT IAL NUCLEATED ERYTHROCYTE S/100 LEUKOCYTES [RATIO] IN BLOOD BY AUTOMATED COUNT 0.0 02/06 Specimen Type: BLOOD No comment entered. Ordering Provider: ADELAIDA GARCIA DO Report Released Date/Time: Feb 06, 2025 10:31 AM Reporting Lab: [facility] [address] [facility] [address] Performing Lab: [facility] [address] [facility] [address] [facility] CBC WITH DIFFERENT IAL NUCLEATED ERYTHROCYTE S [#/VOLUME] IN BLOOD <0.0110* 3/uL 0.000 - 0.012 02/06 Specimen Type: BLOOD No comment entered. Ordering Provider: ADELAIDA GARCIA DO Report Released Date/Time: Feb 06, 2025 10:31 AM Reporting Lab: [facility] [address] [facility] [address] Performing Lab: [facility] [address] [facility] [address] [facility] MICROALBU MIN URINE PANEL,RAN DOM CREATININE [MASS/VOLUM E] IN URINE 140 mg/dL 08/13 Specimen Type: URINE,RANDO M No comment entered. Ordering Provider: ADELAIDA GARCIA DO Report Released Date/Time: Aug 12, 2024 05:18 PM Reporting Lab: [address] Performing Lab: [address] MICROALBU MIN URINE PANEL,RAN DOM MICROALBUMI N [MASS/VOLUM E] IN URINE 1.5 mg/dL 08/13 Specimen Type: URINE,RANDO M No comment entered. Ordering Provider: ADELAIDA GARCIA DO Report Released Date/Time: Aug 12, 2024 05:18 PM Reporting Lab: [place] [phone] Performing Lab: [address] [place] [address] MICROALBU MIN URINE PANEL,RAN DOM MICROALBUMI N/CREATININ E [MASS RATIO] IN URINE 10.7 mg/g 08/13 Specimen Type: URINE,RANDO M No comment entered. Ordering Provider: ADELAIDA GARCIA DO Report Released Date/Time: Aug 12, 2024 05:18 PM Reporting Lab: [place] [phone] Performing Lab: [place] [phone] [place] [address] LIPID PROFILE CHOLESTEROL [MASS/VOLUM E] IN SERUM OR PLASMA 195 mg/dL <200 - 200 08/13 Specimen Type: BLOOD No comment entered. Ordering Provider: ADELAIDA GARCIA DO Report Released Date/Time: Aug 12, 2024 05:18 PM Reporting Lab: [facility] [address] [facility] [address] Performing Lab: [facility] [address] [facility] [address] [facility] LIPID PROFILE TRIGLYCERID E [MASS/VOLUM E] IN SERUM OR PLASMA 120 mg/dL 08/13 Specimen Type: BLOOD No comment entered. Ordering Provider: ADELAIDA GARCIA DO Report Released Date/Time: Aug 12, 2024 05:18 PM Reporting Lab: [address] [facility] [address] Performing Lab: [address] [facility] [address] [facility] LIPID PROFILE CHOLESTEROL IN HDL [MASS/VOLUM E] IN SERUM OR PLASMA 38 mg/dL 08/13 Specimen Type: BLOOD No comment entered. Ordering Provider: ADELAIDA GARCIA DO Report Released Date/Time: Aug 12, 2024 05:18 PM Reporting Lab: [address] [facility] [address] Performing Lab: [address] [facility] [address] [facility] LIPID PROFILE CHOLESTEROL IN LDL [MASS/VOLUM E] IN SERUM OR PLASMA BY CALCULATION 133 mg/dL <130 - 130 08/13 H Specimen Type: BLOOD No comment entered. Ordering Provider: ADELAIDA GARCIA DO Report Released Date/Time: Aug 12, 2024 05:18 PM Reporting Lab: [address] [facility] [address] Performing Lab: [address] [facility] [address] [facility] TSH THYROTROPIN [UNITS/VOLU ME] IN SERUM OR PLASMA 1.748 u[IU]/mL 0.45 - 5.33 08/13 Specimen Type: BLOOD No comment entered. Ordering Provider: ADELAIDA GARCIA DO Report Released Date/Time: Aug 12, 2024 05:18 PM Reporting Lab: [address] [address] Performing Lab: [address] [address] [facility] Vital Signs Combined list of inpatient and outpatient Vital Signs from Department of [facility] and [facility] Affairs, ranging from 12 months to all on record, depending upon the facility. Vital Sign Value Date Comments Source SYSTOLIC BLOOD PRESSURE 124 02/06/2025 11:17:00 [facility] DIASTOLIC BLOOD PRESSURE 78 02/06/2025 11:17:00 [facility] PAIN 0 02/06/2025 11:17:00 [facility] PAIN 3 08/13/2024 10:06:00 [facility] Encounters Combined list of: 1) Encounters from Department of Veterans Affairs facilities going backup to the last 18 months, not all [place] inpatient encounters are included; 2) Encounters from the Department of [facility] facilities going backup to 280 months. 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, unspeci fied DANNY GOMEZ 11/14 [facility] SELF-MGMT EDUC & TRA[place] 1 [place] [id number] Diagnos is: ICD-10- CM M54.50 Low back pain, unspeci fiRAUL WattsIN BELA 12/20 [facility] PT RE-EVAL EST PLAN CARE [id number] Diagnos is: ICD-10- CM M54.50 Low back pain, unspeci fied RAUL WOLF TLIN BELA 01/14 [facility] Outpatient Encounter [id number] 02/07 [facility] OFFICE O/P EST HI 40 MIN [id number] Diagnos is: ICD-10- CM M54.50 Low back pain, unspeci fied SIDIQ,NAZI A Y DO 02/12 [facility] Outpatient Encounter [id number] 03/17 [facility] Outpatient Encounter [id number] 04/02 [facility] Outpatient Encounter [id number] 07/01 [facility] FUNDUS PHOTOGRAPH Y W/I&R [id number] Diagnos is: ICD-10- CM Z13.5 Encount er for screeni ng for eye and ear disorde rs NANNETTE GE MIGELSEY 07/01 [facility] Outpatient Encounter [id number] Diagnos is: ICD-10- CM Z13.5 Encount er for screeni ng for eye and ear disorde rs JOHNNY DEAL OD 07/01 [facility] Outpatient Encounter [id number] 08/12 [facility] Outpatient Encounter [id number] 08/13 [facility] OFFICE O/P EST MOD 30 MIN [id number] Diagnos is: ICD-10- CM I10 Essenti al (primar y) hyperte nsion SIDIQ,NAZI A Y DO 08/13 [facility] Outpatient Encounter [id number] 08/14 [facility] HEARING AID REPAIR/MOD IFYING [id number] Diagnos is: ICD-10- CM Z46.1 Encount er for fitting and adjustm ent of hearing aid Ronak GARIBAY 08/27 [facility] OFFICE O/P EST HI 40 MIN [id number] Diagnos is: ICD-10- CM I10 Essenti al (primar y) hyperte nsion SIDIQ,NAZI A Y DO 02/06 [facility] Outpatient Encounter [id number] 02/06 [facility] Social History Combined list of available smoking, tobacco, and other social history from Department of Defense and Veterans Affairs facilities. Social History Type Response Date Comment Sour e Tobacco smoking status [facility] [place] [place] FORMER CIGARETTES 08/13/2024 [facility] OTHER [facility] 08/13/2024 [facility] History of tobacco use [place] FORMER US[place] 08/18/2023 [facility] History of tobacco [facility] 15 YRS OR MORE 04/22/2022 [facility] History of tobacco use [place] QUIT 15 YRS OR MORE 03/26/2021 [facility] History of tobacco [facility] Y[facility] OR MORE 10/26/2018 [facility] History of tobacco use [place] FORMER USER 10/20/2017 [facility] History of tobacco use QUIT TOBACCO >12 MO 10/20/2017 [facility] History of tobacco use QUIT TOBACCO >12 MO 04/21/2017 [facility] History of tobacco use QUIT TOBACCO >12 MO 10/20/2016 [facility] History of tobacco use LIFETIME NON-USER OF TOBACCO 07/07/2015 [facility] History of tobacco use QUIT TOBACCO >12 MO 12/30/2014 [facility] History of tobacco use QUIT TOBACCO >12 MO 11/18/2014 [facility] History of tobacco use QUIT TOBACCO >12 MO 11/04/2013 [facility] History of tobacco use QUIT TOBACCO >12 MO 06/24/2013 [facility] History of tobacco use QUIT TOBACCO >12 MO 11/07/2012 [facility] History of tobacco use QUIT TOBACCO >12 MO 05/10/2012 [facility] History of tobacco use QUIT TOBACCO >12 MO 08/26/2011 [facility] History of tobacco use QUIT TOBACCO >12 MO 02/21/2011 [facility] History of tobacco use QUIT TOBACCO >12 MO 06/03/2010 [facility] History of tobacco use QUIT TOBACCO >12 MO 10/29/2009 [facility] History of tobacco use QUIT TOBACCO >12 MO 08/07/2008 [facility] History of tobacco use QUIT TOBACCO >7 YEARS AGO 08/03/2007 [facility] History of tobacco use QUIT TOBACCO >7 YEARS AGO 07/27/2006 [facility]
--- OUTSIDE RECORDS SUMMARY | 2025-02-24 09:30 | XMS_ITS | Clinical Summary ---
Author Organization [employer] [facility] Address [id number] [address] [place] [address] Care Team Providers Care Assisted Living Executive Director Name Role Phone No Pcp, No Pcp Primary Care Provider Unavailabl e Allergies No known active allergies Medications carboxymethylcel lulose (REFRESH TEARS) 1 % ophthalmic solution 1 drop 3 (three) times a day as needed. Active betamethasone dipropionate 0.05 % cream Apply 1 Application topically in the morning and 1 Application before bedtime. Active traMADoL (ULTRAM) 50 mg tablet Take 1 tablet (50 mg total) by mouth every 6 (six) hours as needed for pain. Active lisinopriL (PRINIVIL,ZESTRI L) 20 mg tablet Take 1 tablet (20 mg total) by mouth in the morning. Active traZODone (DESYREL) 100 mg tablet Take 1 tablet (100 mg total) by mouth nightly. Active meloxicam (MOBIC) 15 mg tablet Take 1 tablet (15 mg total) by mouth in the morning. Active atenoloL (TENORMIN) 50 mg tablet Take 1 tablet (50 mg total) by mouth in the morning. Active loratadine (CLARITIN) 10 mg tablet Take 1 tablet (10 mg total) by mouth in the morning. Active naloxone (NARCAN) 4 mg/actuation spray,non-aeroso l nasal spray Administer 1 spray (4 mg total) into alternating nostrils as needed for opioid reversal. Active glucosamine-rafa droitin (OSTEO BI-FLEX) 250-200 mg tablet Take by mouth daily. Active guaiFENesin (MUCINEX) 600 mg tablet extended release 12hr Take 1 tablet (600 mg total) by mouth every 12 (twelve) hours as needed. Active docusate sodium (COLACE) 100 mg capsule Take 1 capsule (100 mg total) by mouth 2 (two) times a day as needed for constipation. Active Active Problems No known active problems Family History Medical History Relation Name Comments No Known Problems Father Hypertension Mother Relation Name Status Comments Father Mother Social History Tobacco Use Types Packs/Day Years Used Date Smoking Tobacco: Former Cigarettes Smokeless Tobacco: Never Tobacco Cessation:Counseling Given: Not Answered Alcohol Use Standard Drinks/Week Comments Yes 0 (1 standard drink = 0.6 oz pur e alcohol) rare Childcare Answer Date Recorded Childcare Unknown 12/26/2018 Employment Answer Date Recorded Employment Unknown 12/26/2018 Sex and Gender Information Value Date Recorded Sex Assigned at Not on file Legal Sex Male 11:35 AM EDT Gender Identity Not on file Sexual Orientation Not on file Last Filed Vital Signs Vital Sign Reading Time Taken Comments Blood Pressure 148/80 12/29/2022 8:15 AM EDT Pulse 64 12/29/2022 8:15 AM EDT Temperature 36.5 C (97.7 F) 12/29/2022 6:35 AM EDT Respiratory Rate 18 12/29/2022 8:15 AM EDT Oxygen Saturation 94% 12/29/2022 8:15 AM EDT Inhaled Oxygen Concentration - - Weight 118.8 kg (262 lb) 12/29/2022 6:35 AM EDT Height 182.9 cm (6') 12/29/2022 6:35 AM EDT Body Mass Index 35.53 12/29/2022 6:35 AM EDT Plan of Treatment Health Maintenance Due Date Last Done Comments Depression Screening 1957 Tobacco Screening 1957 DTaP,Tdap and Td Vaccines (1 - Tdap) 1965 Zoster (Shingles) Vaccine (1 of 2) 1996 Fall Risk Screening 2011 COVID-19 Vaccine (2 - season) 2024 Influenza Vaccine 03/17/2025 06/01/2021 Medical Devices Implanted Type Area Labor Custodian Device Identifier Shelf Expiration Date Model / Serial / Lot Lens Iol Ultrasert 22.5d - [id number] - [id number] Implanted:Qty: 1 on 12/15/2022 by Natividad [facility] at [facility] Lens Left: [employer] 04/02/2025 [id number] 22.5 / [id number] / Lens Iol Ultrasert 22.5d - [id number] - [id number] Implanted:Qty: 1 on 12/29/2022 by Natividad Chin MD at [facility] Lens Right: [employer] 06/12/2025 [id number] 22.5 / [id number] / NA Insurance [employer] MEDIC[employer] Care Teams Assisted Living Executive Director Relationship Specialty Start Date End Date No Pcp, No Pcp ESTHER Reynoso [id number] PCP - General Family Medicine 11/16/22
[2025-02-24 09:34] VITALS: BP 147/77; PULSE 83; TEMP 36.6; O2SAT 96; BMI 35.3
--- NOTE | 2025-02-24 09:52 | ED.GENADUL1 ---
HPI HPI - General Adult General Chief complaint: Abdominal Pain Stated complaint: ABDOMINAL PAIN Time Seen by Provider: 02/24/25 09:40 Source: patient Mode of arrival: walk-in History of Present Illness HPI narrative: 79-year-old male presented to the emergency department for abdominal pain. It is in his left lower quadrant and he thinks he has diverticulitis again. He has been little bit constipated but has not seen any blood in his stools. No vomiting trauma or fever. The pain is moderate and continuous. Related Data Previous Rx's ?Medication ?Instructions ?Recorded albuterol sulfate 90 mcg/actuation 2 inh inhalation Q4H PRN shortness 09/10/24 aerosol inhaler of breath or wheezing #8.5 grams ciprofloxacin HCl 500 mg tablet 500 mg PO Q12H #20 tabs 02/24/25 (Cipro) hydrocodone 5 mg-acetaminophen 325 1 tab PO Q6H PRN pain 5 days #20 02/24/25 mg tablet tabs metronidazole 500 mg tablet 500 mg PO TID #30 tabs 02/24/25 ondansetron 4 mg disintegrating 4 mg PO Q6H PRN nausea and 02/24/25 tablet vomiting #20 tabs Allergies Allergy/AdvReac Type Severity Reaction Status Date / Time No Known Drug Allergies Allergy Verified 02/24/25 09:33 Opioid HPI Opioid Management Most Recent Opioid Data: Last Pain Scale 5 Today, 09:34 Review of Systems ROS Narrative A ten point review of systems is negative except as noted above. PFSH PFSH Social History Little interest or pleasure in doing things: not at all Feeling down, depressed, or hopeless: not at all Exam Narrative Exam Narrative: Nurses note and vital signs reviewed and patient is not hypoxic. General: The patient appears well and in no apparent distress. Patient is resting comfortably on cart. Skin: Warm, dry, no pallor noted. There is no rash noted. Head: Normocephalic, atraumatic Eye: Normal conjunctiva, no drainage Ears, Nose, Mouth, and Throat: oral mucosa is moist. Nares patent. Cardiovascular: Regular Rate and Rhythm Respiratory: Patient is in no distress, no accessory muscle use, lungs are clear to auscultation, no wheezing, rales or rhonchi Back: non-tender GI: Soft. Tenderness present in the left lower quadrant without mass. Musculoskeletal: The patient has no evidence of calf tenderness, no pitting edema, symmetrical pulses noted bilaterally Neurological: A&O, normal speech Psychiatric: Cooperative Constitutional Vital Signs, click to edit/add: Last Vital Signs Temp 97.8 F 02/24/25 09:34 Pulse 83 02/24/25 09:34 Resp 16 02/24/25 09:34 BP 147/77 H 02/24/25 09:34 Pulse Ox 96 02/24/25 09:34 O2 Del Method Room Air 02/24/25 09:34 Course Vital Signs Vital signs: Vital Signs Temperature 97.8 F 02/24/25 09:34 Pulse Rate 83 02/24/25 09:34 Respiratory Rate 16 02/24/25 09:34 Blood Pressure 147/77 H 02/24/25 09:34 Pulse Oximetry 96 02/24/25 09:34 Oxygen Delivery Method Room Air 02/24/25 09:34 Temperature 97.8 F 02/24/25 09:34 Pulse Rate 83 02/24/25 09:34 Respiratory Rate 16 02/24/25 09:34 Blood Pressure 147/77 H 02/24/25 09:34 Pulse Oximetry 96 02/24/25 09:34 Oxygen Delivery Method Room Air 02/24/25 09:34 Medical Decision Making MDM Narrative Medical decision making narrative: Mild acute diverticulitis without complications following CAT scan. He was given IV Cipro and Flagyl here and discharged home on Cipro, Flagyl, Zofran, and [place]. Follow-up with PCP. Treatment diagnosis and follow-up were discussed with the patient. Differential Diagnosis Differential Diagnosis: Diverticulitis, colitis, constipation Lab Data Lab results reviewed: Yes I reviewed the patient's lab results Labs: Lab Results 02/24/25 Range/Units 09:50 WBC 13.7 H (4.0-11.0) 10^3/uL RBC 5.05 (4.70-6.10) 10^6/uL Hgb 15.5 (14.0-18.0) g/dL Hct 46.1 (42.0-54.0) % MCV 91.3 (80.0-94.0) fL MCH 30.7 (25.9-34.0) pg MCHC 33.6 (29.9-35.2) g/dL RDW 12.9 (11.0-15.0) % Plt Count 243 (150-450) 10^3/uL MPV 9.4 L (9.5-13.5) fL Neut % (Auto) 66.2 (43.0-75.0) % Lymph % (Auto) 19.1 L (20.5-60.0) % [place] % (Auto) 9.1 (1.7-12.0) % Eos % (Auto) 4.7 (0.9-7.0) % Baso % (Auto) 0.6 (0.2-2.0) % Neut # (Auto) 9.1 H (1.4-6.5) 10^3/uL Lymph # (Auto) 2.6 (1.2-3.8) 10^3/uL [place] # (Auto) 1.3 H (0.3-0.8) 10^3/uL Eos # (Auto) 0.7 (0.0-0.7) 10^3/uL Baso # (Auto) 0.1 (0.0-0.1) 10^3/uL Abs Immat Gran (auto) 0.04 H (0.00-0.03) 10^3/uL Imm/Tot Granulo (auto) 0.3 (0.0-0.5) % Sodium 137 (136-145) mmol/L Potassium 4.6 (3.5-5.1) mmol/L Chloride 104 (98-107) mmol/L Carbon Dioxide 25.8 (21.0-32.0) mmol/L Anion Gap 11.8 BUN 19.0 H (7.0-18.0) mg/dL Creatinine 0.97 (0.70-1.30) mg/dL Est GFR ( Amer) >60 (>=60 mL/min/1.73m^2) Est GFR (Non-Af Amer) >60 (>=60 mL/min/1.73m^2) BUN/Creatinine Ratio 19.6 Glucose 159 H (74-106) mg/dL Calcium 9.8 (8.5-10.1) mg/dL Imaging Data CT scan - abdomen: Radiologist's impression: ITS Impressions Abdomen/Pelvis CT 02/24/25 10:33 IMPRESSION: Colonic diverticulosis with mild inflammatory changes involving the descending colon suspicious for developing diverticulitis. No evidence of perforation or abscess. Impression dictated by: Juan Rodriguez Jr., D.O. 02/24/2025 10:56 AM Dictation [facility] Electronically authenticated by: [id number] Y Date: 02/24/2025 10:56 Discharge Plan Discharge Chief Complaint: Abdominal Pain Clinical Impression: Diverticulitis Patient Disposition: Home, Self-Care Time of Disposition Decision: 11:23 Condition: Good Mode of Transportation: Private Vehicle Prescriptions / Home Meds: New hydrocodone-acetaminophen 5-325 mg tablet 1 tab PO Q6H PRN (Reason: pain) 5 Days Qty: 20 0RF ciprofloxacin HCl [Cipro] 500 mg tablet 500 mg PO Q12H Qty: 20 0RF metronidazole 500 mg tablet 500 mg PO TID Qty: 30 0RF ondansetron 4 mg tablet,disintegrating 4 mg PO Q6H PRN (Reason: nausea and vomiting) Qty: 20 0RF No Action albuterol sulfate 90 mcg/actuation HFA aerosol inhaler 2 inh inhalation Q4H PRN (Reason: shortness of breath or wheezing) Qty: 8.5 0RF Print Language: Kiswahili Instructions: Diverticulitis (ED) Referrals: Physician,Non-Staff, MD [Primary Care Provider] - 1 week
[2025-02-24 10:04] LABS: Hematocrit 46.1 % (42.0-54.0); Hemoglobin 15.5 g/dL (14.0-18.0); Immature Granulocytes Abs Auto 0.04 10^3/uL (0.00-0.03); Immature Granulocytes Pct Auto 0.3 % (0.0-0.5); Lymphocytes Absolute Auto 2.6 10^3/uL (1.2-3.8); Mean Corpuscular HGB Conc 33.6 g/dL (29.9-35.2); Mean Corpuscular Hemoglobin 30.7 pg (25.9-34.0); Mean Corpuscular Volume 91.3 fL (80.0-94.0); Platelet Count 243 10^3/uL (150-450); Red Blood Count 5.05 10^6/uL (4.70-6.10); White Blood Count 13.7 10^3/uL (4.0-11.0)
[2025-02-24 10:11] LABS: Anion Gap 11.8; Blood Urea Nitrogen 19.0 mg/dL (7.0-18.0); Calcium 9.8 mg/dL (8.5-10.1); Carbon Dioxide 25.8 mmol/L (21.0-32.0); Chloride 104 mmol/L (98-107); Estimated GFR (African America >60 (>=60 mL/min/1.73m^2); Estimated GFR (Non-African Ame >60 (>=60 mL/min/1.73m^2); Glucose 159 mg/dL (74-106); Potassium 4.6 mmol/L (3.5-5.1); Sodium 137 mmol/L (136-145)
[2025-02-24] MEDS: MORPHINE SULFATE 4 MG/ML VIAL IV (10:12)
[2025-02-24] MEDS: 0.9 % SODIUM CHLORIDE 1,000 ML 1000 ML IV (10:12)
--- NOTE | 2025-02-24 10:33 | CT_ITS ---
The [address] [address] Patient Name: CHECO DIALLO MRN: [id number] date: 1945 Sex: M Assigned Patient Location: ER Current Patient Location: ER Accession/Order Number: [id number] Exam Date: 02/24/2025 10:52 Report Date: 02/24/2025 10:56 At the request of: PAGE ARMENDARIZ MD Procedure: CT abdomen pelvis w con CT ABDOMEN AND PELVIS WITH INTRAVENOUS CONTRAST: CLINICAL HISTORY: Left lower quadrant pain, rule out diverticulitis COMPARISON: CT abdomen and pelvis 11/21/2023 TECHNIQUE: Spiral images were obtained through the abdomen and pelvis following the administration of intravenous contrast. This CT exam was performed using one or more following dose reduction techniques: Automated exposure control, adjustment of the mA and/or kV according to patient size, or use of iterative reconstruction technique. FINDINGS: Lung Bases: [Bibasilar atelectasis/scarring.] Organs:Liver gallbladder portal vein pancreas and adrenal glands appear unremarkable. 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 Left kidney appears unremarkable. Aorta appears normal in caliber. GI: Stomach is grossly unremarkable. Small bowel appears nondilated. Appendix is normal. No acute colonic abnormality. Colonic diverticulosis with mild inflammatory changes involving the descending colon suspicious for developing diverticulitis. No perforation or abscess.[ Pelvis:[Urinary bladder is grossly unremarkable. Radiation seeds are seen involving the prostate gland.] Peritoneum/Retroperitoneum:No free air or free fluid or lymphadenopathy.[ Abd wall/Bones:Abdominal wall demonstrates no acute findings. Osseous structures demonstrate degenerative change.[ CT/CT abdomen pelvis w con IMPRESSION: Colonic diverticulosis with mild inflammatory changes involving the descending colon suspicious for developing diverticulitis. No evidence of perforation or abscess. Impression dictated by: Juan Rodriguez Jr. DAlexandraOAlexandra 02/24/2025 10:56 AM Dictation Location: [employer] Electronically authenticated by: [id number] Y Date: 02/24/2025 10:56
[2025-02-24] MEDS: METRONIDAZOLE/SODIUM CHLORIDE 500 MG/100 ML PREMIX 100 MG IV (11:25)
[2025-02-24 11:29] VITALS: BP 120/82; PULSE 69; O2SAT 97
[2025-02-24] MEDS: CIPROFLOXACIN IN 5 % DEXTROSE 400 MG/200 ML PREMIX 200 MG IV (12:25)
[2025-02-24 13:30] VITALS: BP 135/87; PULSE 64; O2SAT 99
== END 2025-02-24 13:30 | disposition home or self-care (01) ==
PROVIDERS: Emergency Provider Emergency Medicine
DX: K57.92 Diverticulitis of intestine, part unspecified, without perforation or abscess without bleeding (principal); R10.84 Generalized abdominal pain; K59.00 Constipation, unspecified
CPT/HCPCS: 36415; 74177; 80048; 81001; 85025; 96365; 96367; 96375; 99285; J0744; J1836; J2270; J2405; Q9967